=== PATIENT | female | born 1925 | race Caucasian/White ===

== ENCOUNTER 2016-12-02 02:03 | Inpatient (IN) | payer MEDICARE ==
[~2016-12-02] VITALS: Ht 165.1 cm; Wt 61.3 kg
[~2016-12-02 02:03] MED LIST: ATEN25TA PO; HYDR12.58 PO
[2016-12-02] MEDS: IV NORMAL SALINE 1000ML BAG 1,000 ML IV SCH ×6 (02:31→23:05)
[2016-12-02 02:35] LABS: BILIRUBIN,URINE NEGATIVE (NEG); GLUCOSE,URINE NEGATIVE (NEG); NITRITE,URINE NEGATIVE (NEG); PROTEIN,URINE 100 mg/dL (NEG-TRACE); UROBILINOGEN,URINE 0.2 mg/dL (0.2 mg/dL)
[2016-12-02 02:56] LABS: BACTERIA,URINE MODERATE /HPF (0-FEW); SQUAMOUS EPITHELIAL CELL,UR MOD /LPF; WBC,URINE TNTC /HPF (0-4)
[2016-12-02 03:07] LABS: BASO % 0 % (0-3); EOS % 0 % (0-3); HEMATOCRIT 31.4 % (36.0-47.0); HEMOGLOBIN 10.5 g/dL (12.0-15.5); LYMPH % 12 % (24-48); MEAN CORPUSCULAR HEMOGLOBIN 31 pg (25-35); MEAN CORPUSCULAR HGB CONC 33 g/dL (31-37); MEAN CORPUSCULAR VOLUME 91 fL (79-100); MONO % 10 % (0-9); NEUT % 77 % (31-73); PLATELET COUNT 157 x10^3/uL (140-400); RED BLOOD COUNT 3.44 x10^6/uL (3.50-5.40); RED CELL DISTRIBUTION WIDTH 12.8 % (11.5-14.5); WHITE BLOOD COUNT 8.8 x10^3/uL (4.0-11.0)
[2016-12-02 03:21] LABS: CALCIUM 8.5 mg/dL (8.5-10.1); CREATININE 2.8 mg/dL (0.6-1.0); GFR 15.9; POTASSIUM 4.5 mmol/L (3.5-5.1)
[2016-12-02 03:27] LABS: ALBUMIN 2.2 g/dL (3.4-5.0); ALBUMIN/GLOBULIN RATIO 0.6 (1.0-1.7); TOTAL BILIRUBIN 0.3 mg/dL (0.2-1.0); TOTAL PROTEIN 6.1 g/dL (6.4-8.2)
--- NOTE | 2016-12-02 03:40 | PHYS DOC ---
Past Medical History Past Medical History: Cancer, Hypertension Past Surgical History: Other Additional Past Surgical Histo: cataracts Alcohol Use: None Drug Use: None Adult General Chief Complaint Chief Complaint: DEHYDRATION HPI HPI Patient is a 89 year old female who presents with complaint of dehydration. Patient was brought to the emergency department by EMS after patient was found to have unstable vital signs at her halfway. The patient has history of Alzheimer's dementia, hypertension, and history of urinary tract infection. The patient has been at [facility] for continued care. The patient reportedly had been receiving torsemide 3 times a day which was increased from her normal dosing 3 times a week starting at the beginning of this month. Family states patient has been displaying worsening mental status over the past couple weeks. The patient currently is unable to provide any history but does respond to voice and states that she does not "feel well." Patient found to be hypotensive and tachycardic on EMS evaluation. Patient brought to the emergency department for further treatment. Review of Systems Review of Systems Unable to obtain from patient due to profound illness and dementia Current Medications Current Medications Current Medications Medications (Trade) Dose Ordered Sig/Kylah Start Time Stop Time Status Last Admin Dose Admin Acetaminophen (Tylenol) 650 mg PRN Q4HRS PRN 12/02/16 04:15 12/03/16 04:14 Ceftriaxone Sodium 50 ml @ 100 mls/hr 1X ONCE 12/02/16 03:30 12/02/16 03:59 DC 12/02/16 03:30 100 MLS/HR Ondansetron HCl (Zofran) 4 mg PRN Q8HRS PRN 12/02/16 04:15 12/03/16 04:14 Sodium Chloride 1,000 ml @ 150 mls/hr Q6H40M 12/02/16 04:15 12/03/16 04:14 Allergies Allergies Allergies Coded Allergies Type Severity Reaction Last Updated Verified codeine Allergy Intermediate 12/02/16 No Physical Exam Physical Exam Constitutional: Lethargic, afebrile, tachycardic, hypotensive, appears ill. [] HENT: Normocephalic, atraumatic, bilateral external ears normal, oropharynx dry , no oral exudates, nose normal. [] Eyes: PERRLA, EOMI, conjunctiva normal, no discharge. [] Neck: Normal range of motion, no tenderness, supple, no stridor. [] Cardiovascular: Tachycardia, regular rhythm, no murmur [] Lungs & Thorax: Bilateral breath sounds clear to auscultation [] Abdomen: Bowel sounds normal, soft, suprapubic and left lower quadrant tenderness palpation with guarding, no rebound tenderness, no masses, no pulsatile masses. [] Skin: Warm, dry, no erythema, no rash. [] Back: No tenderness, no CVA tenderness. [] Extremities: No tenderness, no cyanosis, no clubbing, ROM intact, no edema. [] Neurologic: Lethargic, opens eyes to voice, follows commands. [] Current Patient Data Vital Signs Vital Signs Date Time Temp Pulse Resp B/P (MAP) Pulse Ox O2 Delivery O2 Flow Rate FiO2 12/02/16 04:10 72 18 86/51 (63) 99 Nasal Cannula 2.0 12/02/16 02:09 97.8 97.8 Lab Values Laboratory Tests Test 12/02/16 02:25 12/02/16 02:52 Urine Collection Type U cath Urine Color Aide Urine Clarity Turbid Urine pH 8.0 Urine Specific [place] 1.015 Urine Protein 100 mg/dL (NEG-TRACE) Urine Glucose (UA) Negative mg/dL (NEG) Urine Ketones (Stick) Negative mg/dL (NEG) Urine Blood Moderate (NEG) Urine Nitrite Negative (NEG) Urine Bilirubin Negative (NEG) Urine Urobilinogen Dipstick 0.2 mg/dL (0.2 mg/dL) Urine Leukocyte Esterase Moderate (NEG) Urine RBC 6-10 /HPF (0-2) Urine WBC Tntc /HPF (0-4) Urine Squamous Epithelial Cells Mod /LPF Urine Bacteria Moderate /HPF (0-FEW) Urine Mucus Marked /LPF White Blood Count 8.8 x10^3/uL (4.0-11.0) Red Blood Count 3.44 x10^6/uL (3.50-5.40) L Hemoglobin 10.5 g/dL (12.0-15.5) L Hematocrit 31.4 % (36.0-47.0) L Mean Corpuscular Volume 91 fL (79-100) Mean Corpuscular Hemoglobin 31 pg (25-35) Mean Corpuscular Hemoglobin Concent 33 g/dL (31-37) Red Cell Distribution Width 12.8 % (11.5-14.5) Platelet Count 157 x10^3/uL (140-400) Neutrophils (%) (Auto) 77 % (31-73) H Lymphocytes (%) (Auto) 12 % (24-48) L Monocytes (%) (Auto) 10 % (0-9) H Eosinophils (%) (Auto) 0 % (0-3) Basophils (%) (Auto) 0 % (0-3) Neutrophils # (Auto) 6.8 x10^3uL (1.8-7.7) Lymphocytes # (Auto) 1.0 x10^3/uL (1.0-4.8) Monocytes # (Auto) 0.9 x10^3/uL (0.0-1.1) Eosinophils # (Auto) 0.0 x10^3/uL (0.0-0.7) Basophils # (Auto) 0.0 x10^3/uL (0.0-0.2) Sodium Level 126 mmol/L (136-145) L Potassium Level 4.5 mmol/L (3.5-5.1) Chloride Level 91 mmol/L (98-107) L Carbon Dioxide Level 26 mmol/L (21-32) Anion Gap 9 (6-14) Blood Urea Nitrogen 95 mg/dL (7-20) H Creatinine 2.8 mg/dL (0.6-1.0) H Estimated GFR (Cockcroft-Gault) 15.9 BUN/Creatinine Ratio 34 (6-20) H Glucose Level 156 mg/dL (70-99) H Calcium Level 8.5 mg/dL (8.5-10.1) Total Bilirubin 0.3 mg/dL (0.2-1.0) Aspartate Amino Transferase (AST) 23 U/L (15-37) Alanine Aminotransferase (ALT) 14 U/L (14-59) Alkaline Phosphatase 53 U/L (46-116) Total Protein 6.1 g/dL (6.4-8.2) L Albumin 2.2 g/dL (3.4-5.0) L Albumin/Globulin Ratio 0.6 (1.0-1.7) L Laboratory Tests 12/02/16 02:52 Laboratory Tests 12/02/16 02:52 EKG EKG Interpreted by me: Heart rate 116, sinus tachycardia, left axis deviation, left bundle branch block, no acute ST/T-wave abnormalities present [] Radiology/Procedures Radiology/Procedures 3 view acute abdominal series interpreted by me: No pulmonary infiltrates or effusions, nonobstructive bowel gas pattern, no free air under the diaphragm [] Course & Med Decision Making Course & Med Decision Making Pertinent Labs and Imaging studies reviewed. (See chart for details) Patient was started on IV fluids for treatment of severe dehydration. Upon infusion of IV fluids, patient's heart rate improved and patient's blood pressure increased to 100 systolic. Patient did not show any evidence of leukocytosis or fever. Patient has had long-standing urinary tract infection and is currently on Cipro therapy. The patient's hemodynamic instability appears to be due to overdiuresis from her torsemide as she was reported to be taking more than originally prescribed. I do not feel that the patient's hemodynamic instability is consistent with sepsis at this time. The patient was started on IV antibiotics as patient does have evidence of urinary tract infection and urine culture pending at time of admission. I discussed with the family that the patient would need to be admitted to the hospital. Patient stated that the patient normally gets admitted at [facility] and they had requested that the patient be transferred to [facility], however they were told by EMS due to unstable vital signs they needed to come to the closest facility. I offered the family a call through the transfer line to see if they would accept the patient as a transfer per family request. I also provided them the option of admitting the patient here [facility] for continued fluid therapy and IV antibiotics. After careful consideration, the family has agreed to admission to the hospital for further care. Patient amended to Dr. Mars. Critical care time excluding procedures: 50 minutes Dragon Disclaimer Dragon Disclaimer This electronic medical record was generated, in whole or in part, using a voice recognition dictation system. Departure Departure Impression: Primary Impression: Hemodynamic instability Additional Impressions: Acute renal failure Urinary tract infection Metabolic encephalopathy Severe protein-calorie malnutrition Dementia Disposition: ADMITTED INPATIENT Admitting Physician: Ny Mars Condition: GUARDED Referrals: LISE MUELLER MD (PCP) Problem Qualifiers Additional Impressions: Acute renal failure Acute renal failure type: unspecified Qualified Codes: N17.9 - Acute kidney failure, unspecified Urinary tract infection Urinary tract infection type: site unspecified Hematuria presence: without hematuria Qualified Codes: N39.0 - Urinary tract infection, site not specified Dementia Dementia type: unspecified type Dementia behavioral disturbance: without behavioral disturbance Qualified Codes: F03.90 - Unspecified dementia without behavioral disturbance PAM JEWELL MD December 02, 2016 03:40
[2016-12-02] MEDS ORDERED: ONDANSETRON PF 4 MG/2 ML VIAL. IV PRN (04:15)
--- NOTE | 2016-12-02 04:44 | ACF ---
Admission Forms Criteria TELEMETRY CARE Telemetry Admission Guidelines (Place 'X' for any and all applicable criteria): Admission to telemetry [A] may be indicated for ANY ONE of the following(1)(2)(3 )(4)(5): [ ]I. Cardiac disease, including ANY ONE of the following (9)(10)(11)(12)(13 ): [ ]a) Postacute MN [ ]b) Low-risk patients with ST-segment elevation MN who have undergone successful percutaneous coronary intervention [ ]c) Unstable angina [ ]d) Suspected MN (until it is ruled out) [ ]e) Post cardiac surgery (first 48 to 72 hours unless complications occur) [ ]f) Acute arrhythmias (including significant tachycardia or bradycardia) [B] [ ]g) Firing of an implantable cardioverter defibrillator [C] [ ]h) Suspected pacemaker or implantable cardioverter defibrillator malfunction (10) [ ]i) New administration or adjustment of an antiarrhythmic drug [D ] [ ]j) Child admitted for acute congestive heart failure [ ]j) Long QT syndrome [ ]k) Advanced heart block (eg, second-degree Mobitz type II, third- degree heart block) [ ]l) Acute myocarditis or pericarditis [ ]m) Short-term (ambulatory or inpatient) monitoring after a cardiac procedure as indicated by ANY ONE of the following [E]: [ ]i) Electrophysiologic studies [ ]ii) Percutaneous coronary intervention with stent placement [ ]iii) Pacemaker placement with cardiac conduction defect [ ]iv) Implantable cardiac defibrillator placement [ ]II. Drug overdose or poisoning with substance that causes arrhythmias or QT prolongation (eg, phenothiazines, sympathomimetic agents, cyclic antidepressants, digitalis, antiarrhythmic drugs)(15) [ ]III. Short-term (ambulatory or inpatient) monitoring after therapeutic or diagnostic procedure requiring conscious sedation or anesthesia (eg, endoscopy, elective cardioversion) [ ]IV. Acute cerebrovascular even[F](18) [ ]V. Massive blood transfusion (eg, at least 10 units of packed red blood cells in 24 hours) [ ]. Variceal bleeding after endoscopy, sclerotherapy, or IV vasopressin [ ]VII. Uncorrected electrolyte abnormalities associated with an increased risk of dangerous arrhythmia [G]; examples include [ ]a) Hyperkalemia with attributable ECG changes [ ]b) Potassium greater than 6.5 mmol/L (mEq/L) in a patient without history of chronic renal disease [ ]c) Prolonged QT attributed to hypokalemia, hypomagnesemia, or hypocalcemia [ ]VIII.Unexplained syncope or other neurologic event suspected of being due to arrhythmia due to a finding that increases risk; examples include(19)(20)(21): [ ]a) High-risk ECG findings (eg, bifascicular block, bradycardia, abnormal QT interval, ventricular pre- excitation) [ ]b) History of previous syncope due to arrhythmia [ ]c) Abnormal ventricular function (eg, reduced ejection fraction ) [ ]d) Exertional or supine syncope [ ]e) Concerning syncope characteristics (eg, sudden loss of consciousness without prodrome) [ ]f) Family history of sudden [ ]g) Use of arrhythmogenic medication [ ]h) Suspected cardiac ischemia [ ]i) Known channelopathy (eg, long QT syndrome, Brugada syndrome, or catecholaminergic paroxysmal ventricular tachycardia) [ ]j) Known structural heart disease (eg, hypertrophic cardiomyopathy , severe valvular disease) [ ]k) Palpitations preceding syncope The original [employer] content created by [employer] has been revised. The portions of the content which have been revised are identified through the use of italic text or in bold, and [employer] has neither reviewed nor approved the modified material. All other unmodified content is copyright [employer]. Please see references footnoted in the original [employer] edition 2016 NEREIDA ALSTON December 02, 2016 04:44
[2016-12-02 05:18] VITALS: BP 103/60
[2016-12-02 07:00] VITALS: BP 96/55
--- NOTE | 2016-12-02 07:15 | EKG ---
[facility] [address] [place] [address] Test Date: 2016-12-02 Test Time: 02:17:32 Pat Name: KELSEA OGDEN Department: Room: [facility] Gender: F Vice President Research: : 1925 Requested By: PAM JEWELL Order Number: [id number] Reading MD: Vladislav Machado Measurements Intervals [place] Rate: 116 P: TX: QRS: -66 QRSD: 124 T: 80 QT: 336 QTc: 473 Interpretive Statements SUSPECT SINUS RHYTHM 1ST DEGREE AVB PACS LBBB POSSIBLE PRIOR LATERAL/INFERIOR INFARCT Electronically Signed On 12-02-2016 10:48:11 CDT by Vladislav Machado
--- NOTE | 2016-12-02 07:40 | RAD ---
Indication abdominal pain. A single view of the chest as well as flat and upright films of the abdomen were obtained. No prior imaging is available. There is mild cardiomegaly. Somewhat tortuous thoracic aorta is noted. There is no congestive heart failure or focal infiltrate seen. There is no free air. The abdominal gas pattern is normal. No organomegaly or abnormal calculi are seen. Scoliosis, extensive degenerative changes in the visualized spine and vascular calcification are noted. IMPRESSION: No acute finding seen in the chest or abdomen on plain films
--- NOTE | 2016-12-02 08:40 | ACF ---
Admission Forms Criteria HEMODYNAMIC INSTABILITY Clinical Indications for Inpatient Care (Place 'X' for any and all applicable criteria): Ongoing inpatient care may be indicated for hemodynamic instability as indicated by ANY ONE of the following (1)(2)(3)(4)(10): [ ]I) Marked hemodynamic change from baseline (eg, SBP 20 mm Hg below patient's usual pressure) [X]II) New SBP less than 90 mm Hg or mean arterial pressure less than 70 mm Hg [B](15) [ ]IIII) Symptomatic heart rate greater than 100 or less than 60 beats per minute unresponsive to treatment (eg, analgesia, fluids) [ ]IV) Inadequate perfusion as indicated by ANY ONE of the following: [ ]a) Lactic acidosis, with lactic acid greater than 18 mg/dL (2 mmol/ L) or base excess less than -5 mEq/L [ ]b) New abnormal capillary refill (longer than 3 seconds) [ ]c) New altered mental status [ ]d) Reduced urine output [ ]V) Orthostatic vital sign changes [B] that are symptomatic and unresponsive to treatment (eg, fluids) [ ]) IV inotropic or vasopressor medication required(26) Extended stay beyond goal length of stay for primary condition may be needed until ALL of the following are present(1)(2)(3): [ ]a) Heart rate > 60 and < 100 beats per minute or patient is clinically stable at current rate (eg, baseline) [ ]b) SBP >100 mm Hg and <160 mm Hg or patient is clinically stable at current pressure (eg, baseline) [ ]c) DBP greater than 50 mm Hg and less than 100 mm Hg or patient is clinically stable at current pressure (eg, baseline) [ ]d) Urine output greater than 0.5 mL/kg per hour [ ]e) Room air oxygen saturation 90% or greater or at baseline [ ]f) Orthostatic vital sign changes absent, asymptomatic, at baseline, or manageable at lower level of care [ ]g) Medical comorbidities manageable at lower level of care The original [employer] content created by [employer] has been revised. The portions of the content which have been revised are identified through the use of italic text or in bold, and [facility] [employer] has neither reviewed nor approved the modified material. All other unmodified content is copyright [employer]. Please see references footnoted in the original [facility] edition 2016 Admission Criteria Met?: Yes NEREIDA ALSTON December 02, 2016 08:40
[2016-12-02] MEDS ORDERED: GABA-585 PO (08:46)
[2016-12-02] MEDS ORDERED: ACID1TAB11 PO (08:46)
[2016-12-02] MEDS ORDERED: CAPS42.57 TP (08:46)
[2016-12-02] MEDS ORDERED: CIPR250T30 PO (08:46)
[2016-12-02] MEDS ORDERED: LOPE2TAB27 PO (08:46)
[2016-12-02] MEDS ORDERED: TRAM50TA PO (08:46)
[2016-12-02] MEDS ORDERED: ACET500T68 PO (08:46)
[2016-12-02] MEDS ORDERED: PSYL1PAC7 PO (08:46)
[2016-12-02] MEDS ORDERED: TORS20TA2 PO (08:46)
[2016-12-02] MEDS ORDERED: PRAM0.255 PO (08:46)
[2016-12-02] MEDS ORDERED: ENOXAPARIN 30 MG/0.3 ML SYRINGE. SQ SCH (09:00)
[2016-12-02] MEDS: ATENOLOL 25 MG TABLET. PO SCH (09:00)
--- NOTE | 2016-12-02 09:06 | PDOC1 ---
History and Physical Date of Admission Date of Admission DATE: 12/02/16 TIME: 08:59 Identification/Chief Complaint Chief Complaint lethargy, confusion Problems: Source Source: Chart review, Patient History of Present Illness History of Present Illness Lupe New is a 89 year old female admit from confusion, found to be acutely in dehydration. Meds changed from Torsemide 3x week to 3x a day,. error was noted, but family reports that facility "was unable to change to order due to it being a holiday weekend" BP low, brought to ER Hx of mild Alzheimer's dementia, hypertension, and history of chronic urinary tract infection. Chronic diarrhea from diverticulosis, no change.. Family states patient has been displaying worsening mental status over the past couple weeks. Patient found to be hypotensive and tachycardic on EMS evaluation. lethargic this AM, a little better per family Past Medical History Cardiovascular: HTN Pulmonary: No pertinent hx GI: No pertinent hx Heme/Onc: No pertinent hx Rheumatologic: No pertinent hx Infectious disease: No pertinent hx ENT: No pertinent hx Renal/: Chronic renal insuff Family History Family History: No Significant Social History Smoke: No ALCOHOL: none Drugs: None Current Problem List Problem List Problems Medical Problems: (1) Acute renal failure Status: Acute (2) Dementia Status: Acute (3) Hemodynamic instability Status: Acute (4) Metabolic encephalopathy Status: Acute (5) Severe protein-calorie malnutrition Status: Acute (6) Urinary tract infection Status: Acute Problems: Current Medications Current Medications Current Medications Sodium Chloride 1,000 ml @ 1,000 mls/hr Q1H IV Last administered on 12/02/16 03:57; Start 12/02/16 at 03:00; Stop 12/02/16 at 04:59; Status DC Ceftriaxone Sodium 1 gm/ Sodium Chloride 50 ml @ 100 mls/hr Q24H IV ; Start at 04:00 Ceftriaxone Sodium 50 ml @ 100 mls/hr 1X ONCE IV Last administered on 03:30; Start 12/02/16 at 03:30; Stop 12/02/16 at 03:59; Status DC Ondansetron HCl (Zofran) 4 mg PRN Q8HRS PRN IV NAUSEA/VOMITING; Start 12/02/16 at 04:15; Stop 12/03/16 at 04:14 Sodium Chloride 1,000 ml @ 150 mls/hr Q6H40M IV Last administered on t 05:55; Start 12/02/16 at 04:15; Stop 12/03/16 at 04:14 Acetaminophen (Tylenol) 650 mg PRN Q4HRS PRN PO FEVER; Start 12/02/16 at 04:15 ; Stop 12/03/16 at 04:14 Atenolol (Tenormin) 25 mg DAILY PO ; Start 12/02/16 at 09:00 Enoxaparin Sodium (Lovenox Per Pharmacy Prophylaxis Dosing) 1 each PRN DAILY PRN MC SEE COMMENTS; Start 12/02/16 at 08:45 Enoxaparin Sodium (Lovenox 30mg Syringe) 30 mg Q24H SQ ; Start 12/02/16 at 09:00 Active Scripts Active Reported Neurontin (Gabapentin) 100 Mg Capsule 100 Mg PO TID Bacid Caplet (Acidoph/L.bulg/Bif.b/S.thermop) 1 Each Tablet 1 Each PO BID Cipro (Ciprofloxacin Hcl) 250 Mg Tablet 1 Tab PO BID Acetaminophen 500 Mg Tablet 2 Tab PO Q4HRS PRN Tramadol Hcl 50 Mg Tablet 25 Mg PO PRN Q6HRS Loperamide (Loperamide Hcl) 2 Mg Tablet 2 Mg PO PRN 2 caps initially then 1 cap each loose stool up to 8 caps in 24 hrs Capzasin Quick Relief Gel (Capsaicin/Menthol) 42.5 Gm Gel.w.appl 1 Pam TP TID PRN Torsemide 20 Mg Tablet 10 Mg PO Q3DAYS Mirapex (Pramipexole Di-Hcl) 0.25 Mg Tablet 1 Tab PO DAILY Metamucil Packet (Psyllium Seed (With Sugar)) 1 Each Packet 1 Each PO DAILY Hydrochlorothiazide Tablet (Hydrochlorothiazide) 12.5 Mg Tablet 12.5 Mg PO DAILY Atenolol 25 Mg Tablet 25 Mg PO DAILY Allergies Allergies: Coded Allergies: codeine (Unverified Allergy, Intermediate, 12/02/16) ROS Review of System pt lethargic and slow to respond, unable to complete, hx per daughter-in law. some worsening lethargy over time Physical Exam General: Cooperative, No acute distress, Other (not oriented) HEENT: EOMI, Mucous membr. moist/pink, Other (dry) Lungs: Normal air movement Heart: no gallops, no murmurs Extremities: No clubbing, No edema Skin: No significant lesion Neuro: Normal tone Psych/Mental Status: Mood NL Vitals Vitals Vital Signs Date Time Temp Pulse Resp B/P (MAP) Pulse Ox O2 Delivery O2 Flow Rate FiO2 12/02/16 07:00 98.5 96 18 96/55 (69) 98 Room Air 2.0 98.5 Labs Labs Laboratory Tests Test 12/02/16 02:25 12/02/16 02:52 Urine Collection Type U cath Urine Color Aide Urine Clarity Turbid Urine pH 8.0 Urine Specific [place] 1.015 Urine Protein 100 mg/dL (NEG-TRACE) Urine Glucose (UA) Negative mg/dL (NEG) Urine Ketones (Stick) Negative mg/dL (NEG) Urine Blood Moderate (NEG) Urine Nitrite Negative (NEG) Urine Bilirubin Negative (NEG) Urine Urobilinogen Dipstick 0.2 mg/dL (0.2 mg/dL) Urine Leukocyte Esterase Moderate (NEG) Urine RBC 6-10 /HPF (0-2) Urine WBC Tntc /HPF (0-4) Urine Squamous Epithelial Cells Mod /LPF Urine Bacteria Moderate /HPF (0-FEW) Urine Mucus Marked /LPF White Blood Count 8.8 x10^3/uL (4.0-11.0) Red Blood Count 3.44 x10^6/uL (3.50-5.40) Hemoglobin 10.5 g/dL (12.0-15.5) Hematocrit 31.4 % (36.0-47.0) Mean Corpuscular Volume 91 fL (79-100) Mean Corpuscular Hemoglobin 31 pg (25-35) Mean Corpuscular Hemoglobin Concent 33 g/dL (31-37) Red Cell Distribution Width 12.8 % (11.5-14.5) Platelet Count 157 x10^3/uL (140-400) Neutrophils (%) (Auto) 77 % (31-73) Lymphocytes (%) (Auto) 12 % (24-48) Monocytes (%) (Auto) 10 % (0-9) Eosinophils (%) (Auto) 0 % (0-3) Basophils (%) (Auto) 0 % (0-3) Neutrophils # (Auto) 6.8 x10^3uL (1.8-7.7) Lymphocytes # (Auto) 1.0 x10^3/uL (1.0-4.8) Monocytes # (Auto) 0.9 x10^3/uL (0.0-1.1) Eosinophils # (Auto) 0.0 x10^3/uL (0.0-0.7) Basophils # (Auto) 0.0 x10^3/uL (0.0-0.2) Sodium Level 126 mmol/L (136-145) Potassium Level 4.5 mmol/L (3.5-5.1) Chloride Level 91 mmol/L (98-107) Carbon Dioxide Level 26 mmol/L (21-32) Anion Gap 9 (6-14) Blood Urea Nitrogen 95 mg/dL (7-20) Creatinine 2.8 mg/dL (0.6-1.0) Estimated GFR (Cockcroft-Gault) 15.9 BUN/Creatinine Ratio 34 (6-20) Glucose Level 156 mg/dL (70-99) Calcium Level 8.5 mg/dL (8.5-10.1) Total Bilirubin 0.3 mg/dL (0.2-1.0) Aspartate Amino Transf (AST/SGOT) 23 U/L (15-37) Alanine Aminotransferase (ALT/SGPT) 14 U/L (14-59) Alkaline Phosphatase 53 U/L (46-116) Total Protein 6.1 g/dL (6.4-8.2) Albumin 2.2 g/dL (3.4-5.0) Albumin/Globulin Ratio 0.6 (1.0-1.7) Laboratory Tests Test 12/02/16 02:25 12/02/16 02:52 Urine Collection Type U cath Urine Color Aide Urine Clarity Turbid Urine pH 8.0 Urine Specific [place] 1.015 Urine Protein 100 mg/dL (NEG-TRACE) Urine Glucose (UA) Negative mg/dL (NEG) Urine Ketones (Stick) Negative mg/dL (NEG) Urine Blood Moderate (NEG) Urine Nitrite Negative (NEG) Urine Bilirubin Negative (NEG) Urine Urobilinogen Dipstick 0.2 mg/dL (0.2 mg/dL) Urine Leukocyte Esterase Moderate (NEG) Urine RBC 6-10 /HPF (0-2) Urine WBC Tntc /HPF (0-4) Urine Squamous Epithelial Cells Mod /LPF Urine Bacteria Moderate /HPF (0-FEW) Urine Mucus Marked /LPF White Blood Count 8.8 x10^3/uL (4.0-11.0) Red Blood Count 3.44 x10^6/uL (3.50-5.40) Hemoglobin 10.5 g/dL (12.0-15.5) Hematocrit 31.4 % (36.0-47.0) Mean Corpuscular Volume 91 fL (79-100) Mean Corpuscular Hemoglobin 31 pg (25-35) Mean Corpuscular Hemoglobin Concent 33 g/dL (31-37) Red Cell Distribution Width 12.8 % (11.5-14.5) Platelet Count 157 x10^3/uL (140-400) Neutrophils (%) (Auto) 77 % (31-73) Lymphocytes (%) (Auto) 12 % (24-48) Monocytes (%) (Auto) 10 % (0-9) Eosinophils (%) (Auto) 0 % (0-3) Basophils (%) (Auto) 0 % (0-3) Neutrophils # (Auto) 6.8 x10^3uL (1.8-7.7) Lymphocytes # (Auto) 1.0 x10^3/uL (1.0-4.8) Monocytes # (Auto) 0.9 x10^3/uL (0.0-1.1) Eosinophils # (Auto) 0.0 x10^3/uL (0.0-0.7) Basophils # (Auto) 0.0 x10^3/uL (0.0-0.2) Sodium Level 126 mmol/L (136-145) Potassium Level 4.5 mmol/L (3.5-5.1) Chloride Level 91 mmol/L (98-107) Carbon Dioxide Level 26 mmol/L (21-32) Anion Gap 9 (6-14) Blood Urea Nitrogen 95 mg/dL (7-20) Creatinine 2.8 mg/dL (0.6-1.0) Estimated GFR (Cockcroft-Gault) 15.9 BUN/Creatinine Ratio 34 (6-20) Glucose Level 156 mg/dL (70-99) Calcium Level 8.5 mg/dL (8.5-10.1) Total Bilirubin 0.3 mg/dL (0.2-1.0) Aspartate Amino Transf (AST/SGOT) 23 U/L (15-37) Alanine Aminotransferase (ALT/SGPT) 14 U/L (14-59) Alkaline Phosphatase 53 U/L (46-116) Total Protein 6.1 g/dL (6.4-8.2) Albumin 2.2 g/dL (3.4-5.0) Albumin/Globulin Ratio 0.6 (1.0-1.7) VTE Prophylaxis Ordered VTE Prophylaxis Devices: Yes VTE Pharmacological Prophylaxi: No Assessment/Plan Assessment/Plan UTI, acute renal failure dehydration, over-diuresis acute metabolic encephalopathy, UTI and uremia severe malnutrition, alb 2.2 hyponatremia, hypovolemic weakness and debility after a fall, has been in skilled about 28 days admit, renal consult, IV fluid, PT and OT AMBER OCASIO MD December 02, 2016 09:06
[2016-12-02] MEDS: SODIUM BICARBONATE 650 MG TABLET. PO SCH ×2 (10:04→20:39)
[2016-12-02] MEDS: ACETAMINOPHEN 325 MG TABLET. PO PRN ×3 (10:05→21:59)
[2016-12-02 11:00] VITALS: BP 87/57
[2016-12-02 15:00] VITALS: BP 103/58
[2016-12-02 19:00] VITALS: BP 86/33
[2016-12-02] MEDS: metroNIDAZOLE 500 MG TABLET PO SCH (21:59)
[2016-12-02 23:00] VITALS: BP_SYST 129; BP_SYST 84; BP_DIAS 53; BP_DIAS 67
[2016-12-03 03:02] VITALS: BP 96/59
[2016-12-03] MEDS: metroNIDAZOLE 500 MG TABLET PO SCH (04:51)
[2016-12-03 04:52] LABS: BASO % 0 % (0-3); EOS % 2 % (0-3); HEMATOCRIT 27.6 % (36.0-47.0); HEMOGLOBIN 9.1 g/dL (12.0-15.5); LYMPH # 0.8 x10^3/uL (1.0-4.8); LYMPH % 16 % (24-48); MEAN CORPUSCULAR HEMOGLOBIN 30 pg (25-35); MEAN CORPUSCULAR HGB CONC 33 g/dL (31-37); MEAN CORPUSCULAR VOLUME 92 fL (79-100); MONO % 11 % (0-9); NEUT % 71 % (31-73); PLATELET COUNT 134 x10^3/uL (140-400); RED CELL DISTRIBUTION WIDTH 12.8 % (11.5-14.5); WHITE BLOOD COUNT 5.2 x10^3/uL (4.0-11.0)
[2016-12-03 05:06] LABS: CALCIUM 7.7 mg/dL (8.5-10.1); CREATININE 1.8 mg/dL (0.6-1.0); GFR 26.5; MAGNESIUM 2.1 mg/dL (1.8-2.4); POTASSIUM 3.9 mmol/L (3.5-5.1)
[2016-12-03 07:00] VITALS: BP 111/56
[2016-12-03] MEDS: IV NORMAL SALINE 1000ML BAG 1,000 ML IV SCH ×3 (08:09→21:20)
[2016-12-03] MEDS: SODIUM BICARBONATE 650 MG TABLET. PO SCH ×2 (08:09→21:44)
[2016-12-03] MEDS: ATENOLOL 25 MG TABLET. PO SCH (08:10)
[2016-12-03] MEDS: HEPARIN PF for SUB-Q USE 5,000 UNIT/0.5 ML VIAL. SQ SCH ×2 (08:17→21:54)
--- NOTE | 2016-12-03 10:10 | PDOC ---
Infectious Disease Note ROS ROS GEN: Denies fevers, chills, sweats HEENT: Denies blurred vision, sore throat CV: Denies chest pain RESP: Denies shortness of air, cough GI: Denies n/v/d NEURO: Denies confusion, dizziness MSK: Denies weakness, joint pain/swelling Vital Sign Vital Signs Vital Signs Date Time Temp Pulse Resp B/P (MAP) Pulse Ox O2 Delivery O2 Flow Rate FiO2 12/03/16 08:00 Room Air 12/03/16 07:00 97.7 80 20 111/56 (74) 98 97.7 12/02/16 15:00 2.0 Physical Exam PHYSICAL EXAM GENERAL: NAD, Alert HEENT: PERRL, OC/OP NECK: Supple, no JVD, no LN LUNGS: Clear HEART: S1S2, no gallop, no murmur ABD: Soft, NT, no organomegaly, no rebound EXT: No edema, no cyanosis 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, 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 3, no focal neurologic deficit SKIN: No rash IV: ok Labs Lab Laboratory Tests Test 12/03/16 03:10 White Blood Count 5.2 x10^3/uL (4.0-11.0) Red Blood Count 3.00 x10^6/uL (3.50-5.40) Hemoglobin 9.1 g/dL (12.0-15.5) Hematocrit 27.6 % (36.0-47.0) Mean Corpuscular Volume 92 fL (79-100) Mean Corpuscular Hemoglobin 30 pg (25-35) Mean Corpuscular Hemoglobin Concent 33 g/dL (31-37) Red Cell Distribution Width 12.8 % (11.5-14.5) Platelet Count 134 x10^3/uL (140-400) Neutrophils (%) (Auto) 71 % (31-73) Lymphocytes (%) (Auto) 16 % (24-48) Monocytes (%) (Auto) 11 % (0-9) Eosinophils (%) (Auto) 2 % (0-3) Basophils (%) (Auto) 0 % (0-3) Neutrophils # (Auto) 3.7 x10^3uL (1.8-7.7) Lymphocytes # (Auto) 0.8 x10^3/uL (1.0-4.8) Monocytes # (Auto) 0.6 x10^3/uL (0.0-1.1) Eosinophils # (Auto) 0.1 x10^3/uL (0.0-0.7) Basophils # (Auto) 0.0 x10^3/uL (0.0-0.2) Sodium Level 133 mmol/L (136-145) Potassium Level 3.9 mmol/L (3.5-5.1) Chloride Level 100 mmol/L (98-107) Carbon Dioxide Level 22 mmol/L (21-32) Anion Gap 11 (6-14) Blood Urea Nitrogen 75 mg/dL (7-20) Creatinine 1.8 mg/dL (0.6-1.0) Estimated GFR (Cockcroft-Gault) 26.5 Glucose Level 84 mg/dL (70-99) Calcium Level 7.7 mg/dL (8.5-10.1) Magnesium Level 2.1 mg/dL (1.8-2.4) Objective Assessment 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 Was on Flagyl at [facility] starting 11/10 for c-diff per records ? UTI - UA looks ? contaminated- recent Ecoli at . 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
--- NOTE | 2016-12-03 10:53 | PDOC ---
PROGRESS NOTES Chief Complaint Chief Complaint UTI, acute renal failure dehydration, vasomotor nephropathy acute metabolic encephalopathy, UTI and uremia severe malnutrition, alb 2.2 hyponatremia, hypovolemic weakness and debility after a fall, c. diff colitis, History of Present Illness History of Present Illness cont IV fluid, some improvement still very weak, diarrhea consult ID, change to PO vanco discussed with family Speech therapy eval today Vitals Vitals Vital Signs Date Time Temp Pulse Resp B/P (MAP) Pulse Ox O2 Delivery O2 Flow Rate FiO2 12/03/16 08:00 Room Air 12/03/16 07:00 97.7 80 20 111/56 (74) 98 97.7 12/02/16 15:00 2.0 Physical Exam General: Cooperative, No acute distress, Other (not oriented) Heart: Regular rate Lungs: Clear Abdomen: Normal bowel sounds, Soft Extremities: No clubbing, No edema Skin: No significant lesion Labs LABS Laboratory Tests Test 12/03/16 03:10 White Blood Count 5.2 x10^3/uL (4.0-11.0) Red Blood Count 3.00 x10^6/uL (3.50-5.40) Hemoglobin 9.1 g/dL (12.0-15.5) Hematocrit 27.6 % (36.0-47.0) Mean Corpuscular Volume 92 fL (79-100) Mean Corpuscular Hemoglobin 30 pg (25-35) Mean Corpuscular Hemoglobin Concent 33 g/dL (31-37) Red Cell Distribution Width 12.8 % (11.5-14.5) Platelet Count 134 x10^3/uL (140-400) Neutrophils (%) (Auto) 71 % (31-73) Lymphocytes (%) (Auto) 16 % (24-48) Monocytes (%) (Auto) 11 % (0-9) Eosinophils (%) (Auto) 2 % (0-3) Basophils (%) (Auto) 0 % (0-3) Neutrophils # (Auto) 3.7 x10^3uL (1.8-7.7) Lymphocytes # (Auto) 0.8 x10^3/uL (1.0-4.8) Monocytes # (Auto) 0.6 x10^3/uL (0.0-1.1) Eosinophils # (Auto) 0.1 x10^3/uL (0.0-0.7) Basophils # (Auto) 0.0 x10^3/uL (0.0-0.2) Sodium Level 133 mmol/L (136-145) Potassium Level 3.9 mmol/L (3.5-5.1) Chloride Level 100 mmol/L (98-107) Carbon Dioxide Level 22 mmol/L (21-32) Anion Gap 11 (6-14) Blood Urea Nitrogen 75 mg/dL (7-20) Creatinine 1.8 mg/dL (0.6-1.0) Estimated GFR (Cockcroft-Gault) 26.5 Glucose Level 84 mg/dL (70-99) Calcium Level 7.7 mg/dL (8.5-10.1) Magnesium Level 2.1 mg/dL (1.8-2.4) Review of Systems Review of Systems lethargy, weakness taking some PO, able to awaken and follow commands for short periods Assessment and Plan Assessmemt and Plan Problems Medical Problems: (1) Acute renal failure Status: Acute (2) Dementia Status: Acute (3) Hemodynamic instability Status: Acute (4) Metabolic encephalopathy Status: Acute (5) Severe protein-calorie malnutrition Status: Acute (6) Urinary tract infection Status: Acute Problems: Comment Review of Relevant I have reviewed the following items manjinder (where applicable) has been applied. Labs Laboratory Tests Test 12/02/16 02:25 12/02/16 02:52 12/02/16 07:30 12/03/16 03:10 Urine Collection Type U cath Urine Color Aide Urine Clarity Turbid Urine pH 8.0 Urine Specific [place] 1.015 Urine Protein 100 mg/dL (NEG-TRACE) Urine Glucose (UA) Negative mg/dL (NEG) Urine Ketones (Stick) Negative mg/dL (NEG) Urine Blood Moderate (NEG) Urine Nitrite Negative (NEG) Urine Bilirubin Negative (NEG) Urine Urobilinogen Dipstick 0.2 mg/dL (0.2 mg/dL) Urine Leukocyte Esterase Moderate (NEG) Urine RBC 6-10 /HPF (0-2) Urine WBC Tntc /HPF (0-4) Urine Squamous Epithelial Cells Mod /LPF Urine Bacteria Moderate /HPF (0-FEW) Urine Mucus Marked /LPF White Blood Count 8.8 x10^3/uL (4.0-11.0) 5.2 x10^3/uL (4.0-11.0) Red Blood Count 3.44 x10^6/uL (3.50-5.40) 3.00 x10^6/uL (3.50-5.40) Hemoglobin 10.5 g/dL (12.0-15.5) 9.1 g/dL (12.0-15.5) Hematocrit 31.4 % (36.0-47.0) 27.6 % (36.0-47.0) Mean Corpuscular Volume 91 fL (79-100) 92 fL (79-100) Mean Corpuscular Hemoglobin 31 pg (25-35) 30 pg (25-35) Mean Corpuscular Hemoglobin Concent 33 g/dL (31-37) 33 g/dL (31-37) Red Cell Distribution Width 12.8 % (11.5-14.5) 12.8 % (11.5-14.5) Platelet Count 157 x10^3/uL (140-400) 134 x10^3/uL (140-400) Neutrophils (%) (Auto) 77 % (31-73) 71 % (31-73) Lymphocytes (%) (Auto) 12 % (24-48) 16 % (24-48) Monocytes (%) (Auto) 10 % (0-9) 11 % (0-9) Eosinophils (%) (Auto) 0 % (0-3) 2 % (0-3) Basophils (%) (Auto) 0 % (0-3) 0 % (0-3) Neutrophils # (Auto) 6.8 x10^3uL (1.8-7.7) 3.7 x10^3uL (1.8-7.7) Lymphocytes # (Auto) 1.0 x10^3/uL (1.0-4.8) 0.8 x10^3/uL (1.0-4.8) Monocytes # (Auto) 0.9 x10^3/uL (0.0-1.1) 0.6 x10^3/uL (0.0-1.1) Eosinophils # (Auto) 0.0 x10^3/uL (0.0-0.7) 0.1 x10^3/uL (0.0-0.7) Basophils # (Auto) 0.0 x10^3/uL (0.0-0.2) 0.0 x10^3/uL (0.0-0.2) Sodium Level 126 mmol/L (136-145) 133 mmol/L (136-145) Potassium Level 4.5 mmol/L (3.5-5.1) 3.9 mmol/L (3.5-5.1) Chloride Level 91 mmol/L (98-107) 100 mmol/L (98-107) Carbon Dioxide Level 26 mmol/L (21-32) 22 mmol/L (21-32) Anion Gap 9 (6-14) 11 (6-14) Blood Urea Nitrogen 95 mg/dL (7-20) 75 mg/dL (7-20) Creatinine 2.8 mg/dL (0.6-1.0) 1.8 mg/dL (0.6-1.0) Estimated GFR (Cockcroft-Gault) 15.9 26.5 BUN/Creatinine Ratio 34 (6-20) Glucose Level 156 mg/dL (70-99) 84 mg/dL (70-99) Calcium Level 8.5 mg/dL (8.5-10.1) 7.7 mg/dL (8.5-10.1) Total Bilirubin 0.3 mg/dL (0.2-1.0) Aspartate Amino Transf (AST/SGOT) 23 U/L (15-37) Alanine Aminotransferase (ALT/SGPT) 14 U/L (14-59) Alkaline Phosphatase 53 U/L (46-116) Total Protein 6.1 g/dL (6.4-8.2) Albumin 2.2 g/dL (3.4-5.0) Albumin/Globulin Ratio 0.6 (1.0-1.7) Nasal Screen MRSA (PCR) Negative (Negative) Clostridium difficile Toxin (PCR) Positive (Negative) Magnesium Level 2.1 mg/dL (1.8-2.4) Laboratory Tests Test 12/03/16 03:10 White Blood Count 5.2 x10^3/uL (4.0-11.0) Red Blood Count 3.00 x10^6/uL (3.50-5.40) Hemoglobin 9.1 g/dL (12.0-15.5) Hematocrit 27.6 % (36.0-47.0) Mean Corpuscular Volume 92 fL (79-100) Mean Corpuscular Hemoglobin 30 pg (25-35) Mean Corpuscular Hemoglobin Concent 33 g/dL (31-37) Red Cell Distribution Width 12.8 % (11.5-14.5) Platelet Count 134 x10^3/uL (140-400) Neutrophils (%) (Auto) 71 % (31-73) Lymphocytes (%) (Auto) 16 % (24-48) Monocytes (%) (Auto) 11 % (0-9) Eosinophils (%) (Auto) 2 % (0-3) Basophils (%) (Auto) 0 % (0-3) Neutrophils # (Auto) 3.7 x10^3uL (1.8-7.7) Lymphocytes # (Auto) 0.8 x10^3/uL (1.0-4.8) Monocytes # (Auto) 0.6 x10^3/uL (0.0-1.1) Eosinophils # (Auto) 0.1 x10^3/uL (0.0-0.7) Basophils # (Auto) 0.0 x10^3/uL (0.0-0.2) Sodium Level 133 mmol/L (136-145) Potassium Level 3.9 mmol/L (3.5-5.1) Chloride Level 100 mmol/L (98-107) Carbon Dioxide Level 22 mmol/L (21-32) Anion Gap 11 (6-14) Blood Urea Nitrogen 75 mg/dL (7-20) Creatinine 1.8 mg/dL (0.6-1.0) Estimated GFR (Cockcroft-Gault) 26.5 Glucose Level 84 mg/dL (70-99) Calcium Level 7.7 mg/dL (8.5-10.1) Magnesium Level 2.1 mg/dL (1.8-2.4) Medications Current Medications Sodium Chloride 1,000 ml @ 1,000 mls/hr Q1H IV Last administered on 12/02/16t 03:57; Start 12/02/16 at 03:00; Stop 12/02/16 at 04:59; Status DC Ceftriaxone Sodium 1 gm/ Sodium Chloride 50 ml @ 100 mls/hr Q24H IV Last administered on 12/03/16 04:51; Start 12/03/16 at 04:00 Ceftriaxone Sodium 50 ml @ 100 mls/hr 1X ONCE IV Last administered on 03:30; Start 12/02/16 at 03:30; Stop 12/02/16 at 03:59; Status DC Ondansetron HCl (Zofran) 4 mg PRN Q8HRS PRN IV NAUSEA/VOMITING; Start 12/02/16 at 04:15; Stop 12/03/16 at 04:14; Status DC Sodium Chloride 1,000 ml @ 150 mls/hr Q6H40M IV Last administered on 23:05; Start 12/02/16 at 04:15; Stop 12/03/16 at 04:14; Status DC Acetaminophen (Tylenol) 650 mg PRN Q4HRS PRN PO FEVER Last administered on 12/02 21:59; Start 12/02/16 at 04:15; Stop 12/03/16 at 04:14; Status DC Atenolol (Tenormin) 25 mg DAILY PO ; Start 12/02/16 at 09:00 Enoxaparin Sodium (Lovenox Per Pharmacy Prophylaxis Dosing) 1 each PRN DAILY PRN [facility] SEE COMMENTS; Start 12/02/16 at 08:45; Stop 12/02/16 at 15:54; Status DC Enoxaparin Sodium (Lovenox 30mg Syringe) 30 mg Q24H SQ Last administered on 09:56; Start 12/02/16 at 09:00; Stop 12/02/16 at 16:02; Status DC Sodium Bicarbonate (Sodium Bicarbonate) 650 mg BID PO Last administered on 12/03 08:09; Start 12/02/16 at 09:30 Heparin Sodium (Porcine) (Heparin Sq) 5,000 unit Q12HR SQ Last administered on 12/03/16 08:17; Start 12/03/16 at 09:00 Metronidazole (Flagyl) 500 mg Q8HRS PO Last administered on 12/03/16 04:51; Start 12/02/16 at 22:00; Stop 12/03/16 at 09:54; Status DC Sodium Chloride 1,000 ml @ 150 mls/hr Q6H40M IV Last administered on t 08:09; Start 12/03/16 at 08:00 Vancomycin HCl 125 mg [id number] PO ; Start 12/03/16 at 13:00 Lactobacillus Acidophilus (Bacid, Anne Marie-Bid) 1 tab TIDWMEALS PO ; Start 12/03/16 at 12:00 Linezolid (Zyvox) 600 mg BID PO ; Start 12/03/16 at 10:00 Active Scripts Active Reported Neurontin (Gabapentin) 100 Mg Capsule 100 Mg PO TID Bacid Caplet (Acidoph/L.bulg/Bif.b/S.thermop) 1 Each Tablet 1 Each PO BID Cipro (Ciprofloxacin Hcl) 250 Mg Tablet 1 Tab PO BID Acetaminophen 500 Mg Tablet 2 Tab PO Q4HRS PRN Tramadol Hcl 50 Mg Tablet 25 Mg PO PRN Q6HRS Loperamide (Loperamide Hcl) 2 Mg Tablet 2 Mg PO PRN 2 caps initially then 1 cap each loose stool up to 8 caps in 24 hrs Capzasin Quick Relief Gel (Capsaicin/Menthol) 42.5 Gm Gel.w.appl 1 Pam TP TID PRN Torsemide 20 Mg Tablet 10 Mg PO Q3DAYS Mirapex (Pramipexole Di-Hcl) 0.25 Mg Tablet 1 Tab PO DAILY Metamucil Packet (Psyllium Seed (With Sugar)) 1 Each Packet 1 Each PO DAILY Hydrochlorothiazide Tablet (Hydrochlorothiazide) 12.5 Mg Tablet 12.5 Mg PO DAILY Atenolol 25 Mg Tablet 25 Mg PO DAILY Vitals/I & O Vital Sign - Last 24 Hours 12/02/16 12/02/16 12/02/16 12/02/16 11:00 15:00 19:00 20:00 Temp 97.5 96.7 97.7 97.5 96.7 97.7 Pulse 76 73 73 Resp 20 20 20 B/P (MAP) 87/57 (67) 103/58 (73) 86/33 (50) Pulse Ox 98 94 91 O2 Delivery Room Air Room Air Room Air Room Air O2 Flow Rate 2.0 2.0 12/02/16 12/03/16 12/03/16 12/03/16 23:00 03:02 07:00 08:00 Temp 97.5 97.5 97.7 97.5 97.5 97.7 Pulse 93 99 80 Resp 20 20 20 B/P (MAP) 84/53 (63) 96/59 (71) 111/56 (74) Pulse Ox 95 95 98 O2 Delivery Room Air Room Air Room Air Room Air Intake and Output 12/02/16 12/02/16 12/03/16 15:00 23:00 07:00 Intake Total 1000 ml 2300 ml 600 ml Balance 1000 ml 2300 ml 600 ml AMBER OCASIO MD December 03, 2016 10:53
[2016-12-03 11:00] VITALS: BP 88/46
--- NOTE | 2016-12-03 11:19 | PDOC2 ---
CONSULT Date of Consult Date of Consult DATE: 12/03/16 TIME: 11:07 Reason for Consult Reason for Consult: CARMEN Referring Physician Referring Physician: Dr Mars Identification/Chief Complaint Chief Complaint AMS Problems: Source Source: Chart review History of Present Illness Reason for Visit: as dictated Past Medical History Cardiovascular: HTN Pulmonary: No pertinent hx GI: No pertinent hx Heme/Onc: No pertinent hx Rheumatologic: No pertinent hx Infectious disease: No pertinent hx ENT: No pertinent hx Renal/: Chronic renal insuff Family History Family History: No Significant Social History No ALCOHOL: none Drugs: None Lives: Shelter Current Problem List Problem List Problems Medical Problems: (1) Acute renal failure Status: Acute (2) Dementia Status: Acute (3) Hemodynamic instability Status: Acute (4) Metabolic encephalopathy Status: Acute (5) Severe protein-calorie malnutrition Status: Acute (6) Urinary tract infection Status: Acute Current Medications Current Medications Current Medications Sodium Chloride 1,000 ml @ 1,000 mls/hr Q1H IV Last administered on 12/02/16 03:57; Start 12/02/16 at 03:00; Stop 12/02/16 at 04:59; Status DC Ceftriaxone Sodium 1 gm/ Sodium Chloride 50 ml @ 100 mls/hr Q24H IV Last administered on 12/03/16 04:51; Start 12/03/16 at 04:00 Ceftriaxone Sodium 50 ml @ 100 mls/hr 1X ONCE IV Last administered on 03:30; Start 12/02/16 at 03:30; Stop 12/02/16 at 03:59; Status DC Ondansetron HCl (Zofran) 4 mg PRN Q8HRS PRN IV NAUSEA/VOMITING; Start 12/02/16 at 04:15; Stop 12/03/16 at 04:14; Status DC Sodium Chloride 1,000 ml @ 150 mls/hr Q6H40M IV Last administered on 23:05; Start 12/02/16 at 04:15; Stop 12/03/16 at 04:14; Status DC Acetaminophen (Tylenol) 650 mg PRN Q4HRS PRN PO FEVER Last administered on 12/02 21:59; Start 12/02/16 at 04:15; Stop 12/03/16 at 04:14; Status DC Atenolol (Tenormin) 25 mg DAILY PO ; Start 12/02/16 at 09:00 Enoxaparin Sodium (Lovenox Per Pharmacy Prophylaxis Dosing) 1 each PRN DAILY PRN [facility] SEE COMMENTS; Start 12/02/16 at 08:45; Stop 12/02/16 at 15:54; Status DC Enoxaparin Sodium (Lovenox 30mg Syringe) 30 mg Q24H SQ Last administered on 09:56; Start 12/02/16 at 09:00; Stop 12/02/16 at 16:02; Status DC Sodium Bicarbonate (Sodium Bicarbonate) 650 mg BID PO Last administered on 12/03 08:09; Start 12/02/16 at 09:30 Heparin Sodium (Porcine) (Heparin Sq) 5,000 unit Q12HR SQ Last administered on 12/03/16 08:17; Start 12/03/16 at 09:00 Metronidazole (Flagyl) 500 mg Q8HRS PO Last administered on 12/03/16 04:51; Start 12/02/16 at 22:00; Stop 12/03/16 at 09:54; Status DC Sodium Chloride 1,000 ml @ 150 mls/hr Q6H40M IV Last administered on 08:09; Start 12/03/16 at 08:00 Vancomycin HCl 125 mg [id number] PO ; Start 12/03/16 at 13:00 Lactobacillus Acidophilus (Bacid, Anne Marie-Bid) 1 tab TIDWMEALS PO ; Start 12/03/16 at 12:00 Linezolid (Zyvox) 600 mg BID PO ; Start 12/03/16 at 10:00 Active Scripts Active Reported Neurontin (Gabapentin) 100 Mg Capsule 100 Mg PO TID Bacid Caplet (Acidoph/L.bulg/Bif.b/S.thermop) 1 Each Tablet 1 Each PO BID Cipro (Ciprofloxacin Hcl) 250 Mg Tablet 1 Tab PO BID Acetaminophen 500 Mg Tablet 2 Tab PO Q4HRS PRN Tramadol Hcl 50 Mg Tablet 25 Mg PO PRN Q6HRS Loperamide (Loperamide Hcl) 2 Mg Tablet 2 Mg PO PRN 2 caps initially then 1 cap each loose stool up to 8 caps in 24 hrs Capzasin Quick Relief Gel (Capsaicin/Menthol) 42.5 Gm Gel.w.appl 1 Pam TP TID PRN Torsemide 20 Mg Tablet 10 Mg PO Q3DAYS Mirapex (Pramipexole Di-Hcl) 0.25 Mg Tablet 1 Tab PO DAILY Metamucil Packet (Psyllium Seed (With Sugar)) 1 Each Packet 1 Each PO DAILY Hydrochlorothiazide Tablet (Hydrochlorothiazide) 12.5 Mg Tablet 12.5 Mg PO DAILY Atenolol 25 Mg Tablet 25 Mg PO DAILY Allergies Allergies: Coded Allergies: codeine (Unverified Allergy, Intermediate, 12/02/16) ROS Review of System unable to obtain from pt due to AMS Physical Exam Physical Exam General Appearance: barely Awake not Alert Oriented x 0 In no Distress Eyes: sclera anicteric Conjunctiva Normal EN: No EN Drainage Mucous Memb. dryish Neck: no JVD min JVP Supple no Thyromegaly CVS: S1 S2 ? Murmur No Gallop No Rub no Edema Resp: no Rales no Rhonchi no Acc. Muscle use GI: BAS +ve NO Bruit + Tender Non Distended : no CVA tenderness; no Suprapubic Tenderness SKIN: no petechial Rashes Breast Exam deferred Mu.Sk: Adequate passive ROM min Muscle Atrophy Heme: Unable to palpate Obvious LAD [ ] Splenomegaly NEURO: Unable to assess due to AMS, pt does not follow commands; no asterixis Psych: Unable ot currently assess Vital Signs Vital Signs Date Time Temp Pulse Resp B/P (MAP) Pulse Ox O2 Delivery O2 Flow Rate FiO2 12/03/16 08:00 Room Air 12/03/16 07:00 97.7 80 20 111/56 (74) 98 97.7 12/02/16 15:00 2.0 Assessment & Plan CARMEN - VMN improving with IVF. ? Pyelonephritis too? UTI without Hematuria - on IV Rocephin - C x pending Anemia: cehck Green[place] AMS - ? due to UTi vs Intra-abd pathology - ? some due to SIRS, underlying dementia too. DOubt CARMEN has much to do with it HypoTN: IVF as ordered Abd T'ness ? due to cystitis vs due to other intra-abd pathology - Have not ordered CT stone protocol since no hematuria was noted. Discussed Plan of Care and prognosis etc. at length with family. Labs Labs Laboratory Tests Test 12/02/16 02:25 12/02/16 02:52 12/02/16 07:30 12/03/16 03:10 Urine Collection Type U cath Urine Color Aide Urine Clarity Turbid Urine pH 8.0 Urine Specific [place] 1.015 Urine Protein 100 mg/dL (NEG-TRACE) Urine Glucose (UA) Negative mg/dL (NEG) Urine Ketones (Stick) Negative mg/dL (NEG) Urine Blood Moderate (NEG) Urine Nitrite Negative (NEG) Urine Bilirubin Negative (NEG) Urine Urobilinogen Dipstick 0.2 mg/dL (0.2 mg/dL) Urine Leukocyte Esterase Moderate (NEG) Urine RBC 6-10 /HPF (0-2) Urine WBC Tntc /HPF (0-4) Urine Squamous Epithelial Cells Mod /LPF Urine Bacteria Moderate /HPF (0-FEW) Urine Mucus Marked /LPF White Blood Count 8.8 x10^3/uL (4.0-11.0) 5.2 x10^3/uL (4.0-11.0) Red Blood Count 3.44 x10^6/uL (3.50-5.40) 3.00 x10^6/uL (3.50-5.40) Hemoglobin 10.5 g/dL (12.0-15.5) 9.1 g/dL (12.0-15.5) Hematocrit 31.4 % (36.0-47.0) 27.6 % (36.0-47.0) Mean Corpuscular Volume 91 fL (79-100) 92 fL (79-100) Mean Corpuscular Hemoglobin 31 pg (25-35) 30 pg (25-35) Mean Corpuscular Hemoglobin Concent 33 g/dL (31-37) 33 g/dL (31-37) Red Cell Distribution Width 12.8 % (11.5-14.5) 12.8 % (11.5-14.5) Platelet Count 157 x10^3/uL (140-400) 134 x10^3/uL (140-400) Neutrophils (%) (Auto) 77 % (31-73) 71 % (31-73) Lymphocytes (%) (Auto) 12 % (24-48) 16 % (24-48) Monocytes (%) (Auto) 10 % (0-9) 11 % (0-9) Eosinophils (%) (Auto) 0 % (0-3) 2 % (0-3) Basophils (%) (Auto) 0 % (0-3) 0 % (0-3) Neutrophils # (Auto) 6.8 x10^3uL (1.8-7.7) 3.7 x10^3uL (1.8-7.7) Lymphocytes # (Auto) 1.0 x10^3/uL (1.0-4.8) 0.8 x10^3/uL (1.0-4.8) Monocytes # (Auto) 0.9 x10^3/uL (0.0-1.1) 0.6 x10^3/uL (0.0-1.1) Eosinophils # (Auto) 0.0 x10^3/uL (0.0-0.7) 0.1 x10^3/uL (0.0-0.7) Basophils # (Auto) 0.0 x10^3/uL (0.0-0.2) 0.0 x10^3/uL (0.0-0.2) Sodium Level 126 mmol/L (136-145) 133 mmol/L (136-145) Potassium Level 4.5 mmol/L (3.5-5.1) 3.9 mmol/L (3.5-5.1) Chloride Level 91 mmol/L (98-107) 100 mmol/L (98-107) Carbon Dioxide Level 26 mmol/L (21-32) 22 mmol/L (21-32) Anion Gap 9 (6-14) 11 (6-14) Blood Urea Nitrogen 95 mg/dL (7-20) 75 mg/dL (7-20) Creatinine 2.8 mg/dL (0.6-1.0) 1.8 mg/dL (0.6-1.0) Estimated GFR (Cockcroft-Gault) 15.9 26.5 BUN/Creatinine Ratio 34 (6-20) Glucose Level 156 mg/dL (70-99) 84 mg/dL (70-99) Calcium Level 8.5 mg/dL (8.5-10.1) 7.7 mg/dL (8.5-10.1) Total Bilirubin 0.3 mg/dL (0.2-1.0) Aspartate Amino Transf (AST/SGOT) 23 U/L (15-37) Alanine Aminotransferase (ALT/SGPT) 14 U/L (14-59) Alkaline Phosphatase 53 U/L (46-116) Total Protein 6.1 g/dL (6.4-8.2) Albumin 2.2 g/dL (3.4-5.0) Albumin/Globulin Ratio 0.6 (1.0-1.7) Nasal Screen MRSA (PCR) Negative (Negative) Clostridium difficile Toxin (PCR) Positive (Negative) Magnesium Level 2.1 mg/dL (1.8-2.4) Laboratory Tests Test 12/03/16 03:10 White Blood Count 5.2 x10^3/uL (4.0-11.0) Red Blood Count 3.00 x10^6/uL (3.50-5.40) Hemoglobin 9.1 g/dL (12.0-15.5) Hematocrit 27.6 % (36.0-47.0) Mean Corpuscular Volume 92 fL (79-100) Mean Corpuscular Hemoglobin 30 pg (25-35) Mean Corpuscular Hemoglobin Concent 33 g/dL (31-37) Red Cell Distribution Width 12.8 % (11.5-14.5) Platelet Count 134 x10^3/uL (140-400) Neutrophils (%) (Auto) 71 % (31-73) Lymphocytes (%) (Auto) 16 % (24-48) Monocytes (%) (Auto) 11 % (0-9) Eosinophils (%) (Auto) 2 % (0-3) Basophils (%) (Auto) 0 % (0-3) Neutrophils # (Auto) 3.7 x10^3uL (1.8-7.7) Lymphocytes # (Auto) 0.8 x10^3/uL (1.0-4.8) Monocytes # (Auto) 0.6 x10^3/uL (0.0-1.1) Eosinophils # (Auto) 0.1 x10^3/uL (0.0-0.7) Basophils # (Auto) 0.0 x10^3/uL (0.0-0.2) Sodium Level 133 mmol/L (136-145) Potassium Level 3.9 mmol/L (3.5-5.1) Chloride Level 100 mmol/L (98-107) Carbon Dioxide Level 22 mmol/L (21-32) Anion Gap 11 (6-14) Blood Urea Nitrogen 75 mg/dL (7-20) Creatinine 1.8 mg/dL (0.6-1.0) Estimated GFR (Cockcroft-Gault) 26.5 Glucose Level 84 mg/dL (70-99) Calcium Level 7.7 mg/dL (8.5-10.1) Magnesium Level 2.1 mg/dL (1.8-2.4) JOHAN SHERMAN MD December 03, 2016 11:19
[2016-12-03] MEDS ORDERED: MAGNESIUM SULFATE 2GM 50 ML IV PRN (11:30)
[2016-12-03 11:42] LABS: % SAT IRON 12 % (15-34); IRON,SERUM 16 ug/dL (50-170)
[2016-12-03] MEDS: VANCOMYCIN 125 MG/2.5 ML ORAL SOLUTION. PO SCH ×3 (11:44→21:43)
[2016-12-03] MEDS: AMINO AC 3%/ELECTROLYTE/GLYCER 1,000 ML IV SCH (11:44)
[2016-12-03] MEDS: LACTOBACILLUS ACIDOPH & BULGAR 1 TABLET. PO SCH ×2 (11:44→17:05)
[2016-12-03] MEDS: LINEZOLID 600 MG TABLET PO SCH ×2 (11:44→21:44)
[2016-12-03 15:00] VITALS: BP 126/68
[2016-12-03 19:00] VITALS: BP 100/41
[2016-12-03 23:00] VITALS: BP 104/56
[2016-12-04] MEDS: AMINO AC 3%/ELECTROLYTE/GLYCER 1,000 ML IV SCH ×2 (01:28→11:51)
--- NOTE | 2016-12-04 01:51 | CONS ---
DATE OF CONSULTATION: PRIMARY PHYSICIAN: Dr. Mars. REASON FOR CONSULTATION: Acute renal failure. HISTORY OF PRESENT ILLNESS: The patient is an 89-year-old pleasant female who currently has some altered mental status. She usually gets her care at [facility]. She was noted to have altered mental status and dehydration, was brought to the ER for further evaluation. She was found to have "unstable vital signs" at the halfway. She is currently in a dementia unit. She does have a history of UTI based on the ER note. She was supposed to be getting torsemide 3 times a week instead has received torsemide 3 times a day and was found to be hypotensive, tachycardic and dehydrated. I am not able to get much in terms of information from the patient. Her creatinine was elevated at 2.8 yesterday when we were consulted; however, it was felt that the patient's insurance would mandate transfer to [facility], hence the consult was canceled. It was eventually found that the [facility] was ____ and that she would have to continue to be treated here in which case I was reconsulted for the same. Today, her creatinine is down to 1.8. She is being treated with Rocephin IV for possible UTI. Her blood pressures were 86/51 on presentation and has received IV fluids at 150 mL an hour until this morning. For rest of the details, please see electronic renal consult note. JOHAN SHERMAN MD DR: ARLEN/heidi JOB#: [id number] / [id number]
[2016-12-04 03:00] VITALS: BP 127/78
[2016-12-04] MEDS: IV NORMAL SALINE 1000ML BAG 1,000 ML IV SCH ×2 (04:00→10:40)
[2016-12-04 05:14] LABS: ALBUMIN 1.9 g/dL (3.4-5.0); CALCIUM 7.7 mg/dL (8.5-10.1); CREATININE 1.3 mg/dL (0.6-1.0); GFR 38.6; PHOSPHORUS 2.9 mg/dL (2.6-4.7); POTASSIUM 4.7 mmol/L (3.5-5.1)
[2016-12-04 07:20] VITALS: BP 91/64
[2016-12-04] MEDS: LACTOBACILLUS ACIDOPH & BULGAR 1 TABLET. PO SCH ×3 (08:49→16:37)
[2016-12-04] MEDS: SODIUM BICARBONATE 650 MG TABLET. PO SCH ×2 (08:49→20:48)
[2016-12-04] MEDS: VANCOMYCIN 125 MG/2.5 ML ORAL SOLUTION. PO SCH ×4 (08:49→20:48)
[2016-12-04] MEDS: ATENOLOL 25 MG TABLET. PO SCH ×2 (08:50→16:37)
[2016-12-04] MEDS: LINEZOLID 600 MG TABLET PO SCH ×2 (08:50→20:48)
[2016-12-04] MEDS: HEPARIN PF for SUB-Q USE 5,000 UNIT/0.5 ML VIAL. SQ SCH ×2 (09:04→21:01)
--- NOTE | 2016-12-04 09:39 | PDOC ---
SUBJECTIVE ROS CARMEN Doing Muchbetter today, RN reports some PO Intake too, much more awake and alert today CVS: no Orthopnea, no CP RESP: no SOB, no PRO GI: no Nausea, no Vomiting : no Dysuria, no Urgency OBJECTIVE Vital Signs Vital Signs Date Time Temp Pulse Resp B/P (MAP) Pulse Ox O2 Delivery O2 Flow Rate FiO2 12/04/16 08:50 113 91/64 12/04/16 07:20 97.7 18 97 Room Air 97.7 I & 0 Intake and Output 12/04/16 07:00 Intake Total 620 ml Output Total 1625 ml Balance -1005 ml Intake Oral 300 ml IV Total 320 ml Output Urine Total 1625 ml # Bowel Movements 1 PHYSICAL EXAM Physical Exam General Appearance: much more Awake more Alert Oriented x 0 -1 In no Distress Eyes: sclera anicteric Conjunctiva Normal EN: No EN Drainage Mucous Memb. mosit Neck: no JVD min JVP Supple no Thyromegaly CVS: S1 S2 ? Murmur No Gallop No Rub no Edema - tachy Resp: no Rales no Rhonchi no Acc. Muscle use GI: BS +ve NO Bruit + Tender min Distended : no CVA tenderness; no Suprapubic Tenderness Assessment & Plan CARMEN - VMN improving with IVF. Pt noted to have some Urinary retention yest and singletary was placed. Abd Pain - suspect due to Cdiff. KUB to R/o megacolon Fe Def Anemia: IV Venofer as ordered AMS - some due to SIRS, underlying dementia too. Appears to be somewhat better HypoTN: IVF as ordered Abd T'ness ? due to cystitis vs due to other intra-abd pathology - Have not ordered CT stone protocol since no hematuria was noted. C Diff colitis - D/w Dr Mars - hold off of TPn since she is trying to eat herself. Discussed Plan of Care and prognosis etc.with Pall care PROGRAM COUNSELOR - await goals of care. COMMENT/RELEVANT DATA Meds Current Medications Medications (Trade) Dose Ordered Sig/Kylah Start Time Stop Time Status Last Admin Dose Admin Acetaminophen (Tylenol) 650 mg PRN Q4HRS PRN 12/02/16 04:15 12/03/16 04:14 DC 12/02/16 21:59 650 MG Amino Acids/ Glycerin/ Electrolytes 1,000 ml @ 80 mls/hr [id number] 5/31/17 11:30 12/04/16 01:28 80 MLS/HR Atenolol (Tenormin) 25 mg DAILY 12/02/16 09:00 Ceftriaxone Sodium 1 gm/ Sodium Chloride 50 ml @ 100 mls/hr Q24H 12/03/16 04:00 12/04/16 03:47 100 MLS/HR Ceftriaxone Sodium 50 ml @ 100 mls/hr 1X ONCE 12/02/16 03:30 12/02/16 03:59 DC 12/02/16 03:30 100 MLS/HR Enoxaparin Sodium (Lovenox 30mg Syringe) 30 mg Q24H 12/02/16 09:00 12/02/16 16:02 DC 12/02/16 09:56 30 MG Enoxaparin Sodium (Lovenox Per Pharmacy Prophylaxis Dosing) 1 each PRN DAILY PRN 12/02/16 08:45 12/02/16 15:54 DC Heparin Sodium (Porcine) (Heparin Sq) 5,000 unit Q12HR 12/03/16 09:00 12/04/16 09:04 5,000 UNIT Iron Sucrose 200 mg/Sodium Chloride 110 ml @ 55 mls/hr 3X/WEEK 12/05/16 09:00 12/15/16 10:59 UNV Lactobacillus Acidophilus (Bacid, Anne Marie-Bid) 1 tab TIDWMEALS 12/03/16 12:00 12/04/16 08:49 1 TAB Linezolid (Zyvox) 600 mg BID 12/03/16 10:00 12/04/16 08:50 600 MG Magnesium Sulfate/ Dextrose 50 ml @ 25 mls/hr PRN DAILY PRN 12/03/16 11:30 Metronidazole (Flagyl) 500 mg Q8HRS 12/02/16 22:00 12/03/16 09:54 DC 12/03/16 04:51 500 MG Ondansetron HCl (Zofran) 4 mg PRN Q8HRS PRN 12/02/16 04:15 12/03/16 04:14 DC Sodium Bicarbonate (Sodium Bicarbonate) 650 mg BID 12/02/16 09:30 12/04/16 08:49 650 MG Sodium Chloride 1,000 ml @ 150 mls/hr Q6H40M 12/03/16 08:00 12/03/16 08:09 150 MLS/HR Vancomycin HCl 125 mg [id number] 12/03/16 13:00 12/04/16 08:49 125 MG Lab Laboratory Tests Test 12/04/16 03:30 Hemoglobin 10.0 g/dL (12.0-15.5) Sodium Level 136 mmol/L (136-145) Potassium Level 4.7 mmol/L (3.5-5.1) Chloride Level 103 mmol/L (98-107) Carbon Dioxide Level 24 mmol/L (21-32) Anion Gap 9 (6-14) Blood Urea Nitrogen 63 mg/dL (7-20) Creatinine 1.3 mg/dL (0.6-1.0) Estimated GFR (Cockcroft-Gault) 38.6 Glucose Level 134 mg/dL (70-99) Calcium Level 7.7 mg/dL (8.5-10.1) Phosphorus Level 2.9 mg/dL (2.6-4.7) Magnesium Level 1.9 mg/dL (1.8-2.4) Albumin 1.9 g/dL (3.4-5.0) JOHAN SHERMAN MD Dec 04, 2016 09:39
--- NOTE | 2016-12-04 09:46 | PDOC ---
PROGRESS NOTES Chief Complaint Chief Complaint UTI, acute renal failure dehydration, vasomotor nephropathy acute metabolic encephalopathy, UTI and uremia severe malnutrition, alb 2.2 on admit hyponatremia, hypovolemic weakness and debility after a fall, c. diff colitis, History of Present Illness History of Present Illness cont IV fluid, some improvement still very weak, passed swallow eval, needs assist awake and more responsive Vitals Vitals Vital Signs Date Time Temp Pulse Resp B/P (MAP) Pulse Ox O2 Delivery O2 Flow Rate FiO2 12/04/16 08:50 113 91/64 12/04/16 07:20 97.7 18 97 Room Air 97.7 Physical Exam General: Cooperative, No acute distress, Other (not oriented) Heart: Regular rate Lungs: Clear Abdomen: Normal bowel sounds, Soft Extremities: No clubbing, No edema Skin: No significant lesion Labs LABS Laboratory Tests Test 12/04/16 03:30 Hemoglobin 10.0 g/dL (12.0-15.5) Sodium Level 136 mmol/L (136-145) Potassium Level 4.7 mmol/L (3.5-5.1) Chloride Level 103 mmol/L (98-107) Carbon Dioxide Level 24 mmol/L (21-32) Anion Gap 9 (6-14) Blood Urea Nitrogen 63 mg/dL (7-20) Creatinine 1.3 mg/dL (0.6-1.0) Estimated GFR (Cockcroft-Gault) 38.6 Glucose Level 134 mg/dL (70-99) Calcium Level 7.7 mg/dL (8.5-10.1) Phosphorus Level 2.9 mg/dL (2.6-4.7) Magnesium Level 1.9 mg/dL (1.8-2.4) Albumin 1.9 g/dL (3.4-5.0) Review of Systems Review of Systems no n/v abd pain better Assessment and Plan Assessmemt and Plan Problems Medical Problems: (1) Acute renal failure Status: Acute (2) Dementia Status: Acute (3) Hemodynamic instability Status: Acute (4) Metabolic encephalopathy Status: Acute (5) Severe protein-calorie malnutrition Status: Acute (6) Urinary tract infection Status: Acute Problems: Comment Review of Relevant I have reviewed the following items manjinder (where applicable) has been applied. Labs Laboratory Tests Test 12/03/16 03:10 12/04/16 03:30 White Blood Count 5.2 x10^3/uL (4.0-11.0) Red Blood Count 3.00 x10^6/uL (3.50-5.40) Hemoglobin 9.1 g/dL (12.0-15.5) 10.0 g/dL (12.0-15.5) Hematocrit 27.6 % (36.0-47.0) Mean Corpuscular Volume 92 fL (79-100) Mean Corpuscular Hemoglobin 30 pg (25-35) Mean Corpuscular Hemoglobin Concent 33 g/dL (31-37) Red Cell Distribution Width 12.8 % (11.5-14.5) Platelet Count 134 x10^3/uL (140-400) Neutrophils (%) (Auto) 71 % (31-73) Lymphocytes (%) (Auto) 16 % (24-48) Monocytes (%) (Auto) 11 % (0-9) Eosinophils (%) (Auto) 2 % (0-3) Basophils (%) (Auto) 0 % (0-3) Neutrophils # (Auto) 3.7 x10^3uL (1.8-7.7) Lymphocytes # (Auto) 0.8 x10^3/uL (1.0-4.8) Monocytes # (Auto) 0.6 x10^3/uL (0.0-1.1) Eosinophils # (Auto) 0.1 x10^3/uL (0.0-0.7) Basophils # (Auto) 0.0 x10^3/uL (0.0-0.2) Reticulocyte Count (auto) 1.2 % (0.5-2.5) Sodium Level 133 mmol/L (136-145) 136 mmol/L (136-145) Potassium Level 3.9 mmol/L (3.5-5.1) 4.7 mmol/L (3.5-5.1) Chloride Level 100 mmol/L (98-107) 103 mmol/L (98-107) Carbon Dioxide Level 22 mmol/L (21-32) 24 mmol/L (21-32) Anion Gap 11 (6-14) 9 (6-14) Blood Urea Nitrogen 75 mg/dL (7-20) 63 mg/dL (7-20) Creatinine 1.8 mg/dL (0.6-1.0) 1.3 mg/dL (0.6-1.0) Estimated GFR (Cockcroft-Gault) 26.5 38.6 Glucose Level 84 mg/dL (70-99) 134 mg/dL (70-99) Calcium Level 7.7 mg/dL (8.5-10.1) 7.7 mg/dL (8.5-10.1) Magnesium Level 2.1 mg/dL (1.8-2.4) 1.9 mg/dL (1.8-2.4) Iron Level 16 ug/dL (50-170) Total Iron Binding Capacity 136 ug/dL (250-450) Iron Saturation 12 % (15-34) Ferritin 225 ng/mL (8-252) Phosphorus Level 2.9 mg/dL (2.6-4.7) Albumin 1.9 g/dL (3.4-5.0) Laboratory Tests Test 12/04/16 03:30 Hemoglobin 10.0 g/dL (12.0-15.5) Sodium Level 136 mmol/L (136-145) Potassium Level 4.7 mmol/L (3.5-5.1) Chloride Level 103 mmol/L (98-107) Carbon Dioxide Level 24 mmol/L (21-32) Anion Gap 9 (6-14) Blood Urea Nitrogen 63 mg/dL (7-20) Creatinine 1.3 mg/dL (0.6-1.0) Estimated GFR (Cockcroft-Gault) 38.6 Glucose Level 134 mg/dL (70-99) Calcium Level 7.7 mg/dL (8.5-10.1) Phosphorus Level 2.9 mg/dL (2.6-4.7) Magnesium Level 1.9 mg/dL (1.8-2.4) Albumin 1.9 g/dL (3.4-5.0) Medications Current Medications Sodium Chloride 1,000 ml @ 1,000 mls/hr Q1H IV Last administered on 12/02/16 03:57; Start 12/02/16 at 03:00; Stop 12/02/16 at 04:59; Status DC Ceftriaxone Sodium 1 gm/ Sodium Chloride 50 ml @ 100 mls/hr Q24H IV Last administered on 12/04/16 03:47; Start 12/03/16 at 04:00 Ceftriaxone Sodium 50 ml @ 100 mls/hr 1X ONCE IV Last administered on 03:30; Start 12/02/16 at 03:30; Stop 12/02/16 at 03:59; Status DC Ondansetron HCl (Zofran) 4 mg PRN Q8HRS PRN IV NAUSEA/VOMITING; Start 12/02/16 at 04:15; Stop 12/03/16 at 04:14; Status DC Sodium Chloride 1,000 ml @ 150 mls/hr Q6H40M IV Last administered on 23:05; Start 12/02/16 at 04:15; Stop 12/03/16 at 04:14; Status DC Acetaminophen (Tylenol) 650 mg PRN Q4HRS PRN PO FEVER Last administered on 12/02 21:59; Start 12/02/16 at 04:15; Stop 12/03/16 at 04:14; Status DC Atenolol (Tenormin) 25 mg DAILY PO ; Start 12/02/16 at 09:00 Enoxaparin Sodium (Lovenox Per Pharmacy Prophylaxis Dosing) 1 each PRN DAILY PRN MC SEE COMMENTS; Start 12/02/16 at 08:45; Stop 12/02/16 at 15:54; Status DC Enoxaparin Sodium (Lovenox 30mg Syringe) 30 mg Q24H SQ Last administered on 09:56; Start 12/02/16 at 09:00; Stop 12/02/16 at 16:02; Status DC Sodium Bicarbonate (Sodium Bicarbonate) 650 mg BID PO Last administered on 08:49; Start 12/02/16 at 09:30 Heparin Sodium (Porcine) (Heparin Sq) 5,000 unit Q12HR SQ Last administered on 12/04/16 09:04; Start 12/03/16 at 09:00 Metronidazole (Flagyl) 500 mg Q8HRS PO Last administered on 12/03/16 04:51; Start 12/02/16 at 22:00; Stop 12/03/16 at 09:54; Status DC Sodium Chloride 1,000 ml @ 150 mls/hr Q6H40M IV Last administered on 08:09; Start 12/03/16 at 08:00 Vancomycin HCl 125 mg [id number] PO Last administered on 12/04/16 08:49; Start at 13:00 Lactobacillus Acidophilus (Bacid, Anne Marie-Bid) 1 tab TIDWMEALS PO Last administered on 12/04/16 08:49; Start 12/03/16 at 12:00 Linezolid (Zyvox) 600 mg BID PO Last administered on 12/04/16 08:50; Start at 10:00 Magnesium Sulfate/ Dextrose 50 ml @ 25 mls/hr PRN DAILY PRN IV for Mag < 1.7 on am labs; Start 12/03/16 at 11:30 Amino Acids/ Glycerin/ Electrolytes 1,000 ml @ 80 mls/hr [id number] IV Last administered on 12/04/16 01:28; Start 12/03/16 at 11:30 Iron Sucrose 200 mg/Sodium Chloride 110 ml @ 55 mls/hr 3X/WEEK IV ; Start at 09:00; Stop 12/15/16 at 10:59; Status UNV Active Scripts Active Reported Neurontin (Gabapentin) 100 Mg Capsule 100 Mg PO TID Bacid Caplet (Acidoph/L.bulg/Bif.b/S.thermop) 1 Each Tablet 1 Each PO BID Cipro (Ciprofloxacin Hcl) 250 Mg Tablet 1 Tab PO BID Acetaminophen 500 Mg Tablet 2 Tab PO Q4HRS PRN Tramadol Hcl 50 Mg Tablet 25 Mg PO PRN Q6HRS Loperamide (Loperamide Hcl) 2 Mg Tablet 2 Mg PO PRN 2 caps initially then 1 cap each loose stool up to 8 caps in 24 hrs Capzasin Quick Relief Gel (Capsaicin/Menthol) 42.5 Gm Gel.w.appl 1 Pam TP TID PRN Torsemide 20 Mg Tablet 10 Mg PO Q3DAYS Mirapex (Pramipexole Di-Hcl) 0.25 Mg Tablet 1 Tab PO DAILY Metamucil Packet (Psyllium Seed (With Sugar)) 1 Each Packet 1 Each PO DAILY Hydrochlorothiazide Tablet (Hydrochlorothiazide) 12.5 Mg Tablet 12.5 Mg PO DAILY Atenolol 25 Mg Tablet 25 Mg PO DAILY Vitals/I & O Vital Sign - Last 24 Hours 5/31/12/03/16 12/03/16 12/03/16 11:00 15:00 19:00 20:00 Temp 98.8 99.1 99.1 98.8 99.1 99.1 Pulse 108 119 117 Resp 20 20 18 B/P (MAP) 88/46 (60) 126/68 (87) 100/41 (60) Pulse Ox 96 95 93 O2 Delivery Room Air Room Air Room Air Room Air 12/03/16 12/04/16 12/04/16 12/04/16 23:00 03:00 07:20 08:50 Temp 98.6 97.9 97.7 98.6 97.9 97.7 Pulse 120 119 113 113 Resp 18 18 18 B/P (MAP) 104/56 (72) 127/78 (94) 91/64 (73) 91/64 Pulse Ox 96 97 97 O2 Delivery Room Air Room Air Room Air Intake and Output 12/03/16 12/03/16 12/04/16 14:59 22:59 06:59 Intake Total 620 ml Output Total 725 ml 900 ml Balance -105 ml -900 ml Nutrition Consultation Dietary Evaluation: Recommendations by RD: Add supplement feedings Comments: boost plus boost puddding REC mvi, vit c Expected Outcomes/Goals: to meet > 50% est nutr needs Interpretation of weight loss: >5% in 1 month Malnutrition Findings: Food and Nutrition Intake (Sev: <50% est energy req 5days Weight Status: Appropriate AMBER OCASIO MD Dec 04, 2016 09:46
[2016-12-04 10:50] VITALS: BP 129/62
[2016-12-04] MEDS: ACETAMINOPHEN 325 MG TABLET. PO PRN (11:51)
[2016-12-04 15:23] VITALS: BP 129/71
--- NOTE | 2016-12-04 16:19 | RAD ---
Abdomen radiograph History: C. Difficile colitis, assess:. Comparison: 12/02/2016. Findings: AP supine abdomen radiograph. Bowel gas pattern is nonspecific, without evidence of obstruction. No radiographic evidence of colitis is seen, although colitis is not excluded. Degenerative dextroconvex scoliosis of the spine is seen. Aortic atherosclerosis is seen. No gross pneumoperitoneum is identified. Impression: Nonspecific bowel gas pattern.
--- NOTE | 2016-12-04 17:00 | CONS ---
DATE OF CONSULTATION: 12/03/2016 INFECTIOUS DISEASE CONSULTATION LOCATION: The patient's room is 500. REQUESTING PHYSICIAN: Ny Mars M.D. REASON FOR CONSULTATION: C. difficile. HISTORY OF PRESENT ILLNESS: The patient is an 89-year-old female with dementia, not a very good historian; however, there are records available from as well as her nursing facility. It appears that she was admitted to the [facility] on 12/01/2016 secondary to fall and concern for sepsis. Cultures were obtained. She did have a urine culture that was positive for E. coli, sensitive to Augmentin, nitrofurantoin, gentamicin, Bactrim, Zosyn, tetracycline, cefepime, Invanz, ceftriaxone. She did have a blood culture that was positive for Gram-positive cocci resembling Staph, but I did contact Microbiology this morning and there was 1 bottle and it was a coag-negative Staph. It appears she was discharged on cefpodoxime, which she took at the nursing facility on 11/10/2016. She had another urinary tract infection with VRE. She was placed on nitrofurantoin, but also C. diff was positive on 11/10/2016 and she was placed on 14 days of metronidazole. She is now brought to [facility] on 12/02/2016 secondary to dehydration. Apparently, there is concern for some fluid overload. She had been given torsemide, but she has developed mental status change. She was hypertensive and tachycardic. Urine is questionable for UTI in which she had a moderate amount of squamous cells. It could represent a contamination. She had a normal white blood cell count with normal differential, but her C. diff was positive on the . She underwent acute abdominal series that did not show any acute findings in the chest or abdomen. She has been placed on IV Rocephin and oral metronidazole. Currently, she is lying in bed. She is working with physical therapy, but she is minimally responsive. PAST MEDICAL HISTORY: Positive for recurrent UTIs with incontinence, bilateral knee pain, history of uterine cancer, back pain, has a history of diverticulitis. PAST SURGICAL HISTORY: Positive for cataract, hysterectomy, colonoscopy, and wrist surgery for fracture. REVIEW OF SYSTEMS: Unreliable and she did not have any complications. SOCIAL HISTORY: She is a [facility] resident. No tobacco. FAMILY HISTORY: Positive for rheumatoid arthritis, myocardial infarctions and cancers. ALLERGIES: LISTED LASIX AND CODEINE FROM . CURRENT MEDICATIONS: Include Rocephin, Tenormin, Lovenox, and metronidazole. Other meds are available and reviewed in the chart. PHYSICAL EXAMINATION: VITAL SIGNS: She has been afebrile. Temperature 97.7, pulse 80, respirations 20, blood pressure 111/56, satting 98% on room air. CONSTITUTIONAL: She is lying in the bed. She is in no acute distress. She did open her eyes. HEENT: Pupils are status post cataract surgery. Oral cavity, pharynx is dry. NECK: Supple, no JVD. LUNGS: Decreased in the bases. HEART: S1, S2. ABDOMEN: ____ obese, distended, no guarding or rebound. EXTREMITIES: No clubbing, cyanosis or gross edema. SKIN: Warm to touch without signs of rash. NEUROLOGIC: She is demented, but minimally responsive, but did cooperate somewhat. PSYCHIATRIC: Affect was flat. LABORATORY DATA: White count 5.2, hemoglobin 9.1, platelets of 134 with 71 neutrophils, 16 lymphs. Creatinine 1.0, glucose 84. Normal liver function study tests. IMAGING: Reviewed the history of present illness and MRSA screen was negative. ____ Radiology reviewed in history of present illness. IMPRESSION: 1. Clostridium difficile positive from the . This is recurrent. She was on Flagyl at the [facility] for Clostridium difficile; started on 11/10/2016 per the records. 2. Questionable urinary tract infection. Urine looks questionably contaminated. She had recent Escherichia coli in and was on Macrobid at the [facility] for VRE ____. 3. Acute kidney injury. 4. Dementia. RECOMMENDATIONS: For now, we will change to p.o. vancomycin. We will continue the Rocephin for now, add Zyvox, add probiotics. Follow up the labs and cultures. I did review medical records as well as ____ records and talked to Micro. Thank you for allowing to participate in this patient's care. If you have any questions, please do not hesitate to contact me. KALYAN KESSLER MD DR: RICHARD/heidi JOB#: [id number] / [id number]
--- NOTE | 2016-12-04 17:35 | PDOC2 ---
PALLIATIVE CARE Palliative Care Note Palliative Care Consult requested by Dr. Marmolejo to address goals of care Met with son Damon PERSAUD; son Wm PERSAUD and his Patient alert. ate breakfast this am. and was visiting with son earlier. Family sees drastic improvement of LOC Reviewed medical condition: Acute renal failure--improved with medication adjustment and fluids; dementia; severe p/c malnutrition Discussed overall medical condition; family would like to continue with aggressive care. Discussed challenges that may be seen in future such and feeding tubes, dialysis etc. Results of Swallow evaluation reviewed. Confirmed Code Status: DNR.DNI Outside the hospital form completed. Reviewed AD. Copy placed on record. Discharge plan will be discussed with Nae LUDWIG after meeting. Plan: Continue current medical treatment plan DNR/DNI LUIS CAAL Dec 04, 2016 17:35
[2016-12-04 19:00] VITALS: BP 131/71
[2016-12-04 23:00] VITALS: BP 133/79
[2016-12-05] MEDS: AMINO AC 3%/ELECTROLYTE/GLYCER 1,000 ML IV SCH ×2 (01:00→12:23)
[2016-12-05 03:00] VITALS: BP 124/70
--- NOTE | 2016-12-05 05:23 | CONS ---
DATE OF CONSULTATION: 12/04/2016 CHIEF COMPLAINT: Urinary retention, urinary tract infection. HISTORY OF PRESENT ILLNESS: This is an 89-year-old female with advanced dementia. She was admitted to the hospital through the Emergency Room from her [facility] due to a change in status. She was found to be dehydrated, and urinary tract infection and her vitals were somewhat stable. She was admitted to the hospital for IV hydration and antibiotic therapy. PAST MEDICAL HISTORY: The patient has a history of advanced dementia, Alzheimer's type. History of recurrent urinary tract infections. History of hypertension. The chart mentions that she has a history of cancer though the type of cancer is not specified. There is no family members present at this time. PAST SURGICAL HISTORY: The patient has had cataract surgery. Further medical history unobtainable due to the patient's dementia. PHYSICAL EXAMINATION: GENERAL DESCRIPTION: An 89-year-old female. She is not alert to time or place. She is not a viable medical pathologist. She does state that she has a history of urinary incontinence. ABDOMEN: Soft, nontender. Negative for flank pain to palpation bilaterally. No palpable abdominal masses. No suprapubic tenderness. The patient has indwelling Osullivan catheter draining kirti colored urine. EXTREMITIES: Negative for cyanosis bilaterally. LABORATORY DATA: Urine culture reveals Proteus urinary tract infection, sensitive to several oral antibiotics. The patient's current white blood cell count is 5.2, hemoglobin is 9.1, hematocrit 27.6, platelets ____. Chemistries: The patient's creatinine on admission was 1.8, her BUN is 75, it has improved with IV hydration and current creatinine 1.3, BUN 63. Urinalysis on admission, kirti colored, turbid, moderate leukocytes, 6-10 red blood cells, too numerous to count white blood cells, moderate bacteria. X-RAY STUDIES: No x-rays pertinent to the system. IMPRESSION: 1. Urinary retention -- Osullivan catheter was placed when the patient arrived at the hospital. There is no documentation ____ amount of urine received on catheterization. 2. Urinary tract infection -- Proteus. 3. Advanced dementia. SUGGESTIONS: 1. It is my understanding that the patient is currently not ambulatory. She is extremely lethargic. I would recommend continuing her Osullivan catheter until her overall mobility status improves. 2. She is normally seen by physicians at , which probably have a better idea as to her bladder function status. I would recommend maintaining Osullivan catheter to dependent drainage bag until she follows up with her physicians at [facility]. Her renal function has improved with Osullivan catheter drainage. Thank you for the opportunity to participate in evaluation of this patient. CATIA TAVERA DO DR: ÁNGEL/heidi JOB#: [id number] / [id number]
[2016-12-05 06:14] LABS: BASO % 0 % (0-3); EOS % 3 % (0-3); HEMATOCRIT 27.4 % (36.0-47.0); HEMOGLOBIN 9.6 g/dL (12.0-15.5); LYMPH % 18 % (24-48); MEAN CORPUSCULAR HEMOGLOBIN 31 pg (25-35); MEAN CORPUSCULAR HGB CONC 35 g/dL (31-37); MEAN CORPUSCULAR VOLUME 89 fL (79-100); MONO % 8 % (0-9); NEUT % 71 % (31-73); PLATELET COUNT 191 x10^3/uL (140-400); RED BLOOD COUNT 3.07 x10^6/uL (3.50-5.40); RED CELL DISTRIBUTION WIDTH 12.9 % (11.5-14.5); WHITE BLOOD COUNT 5.6 x10^3/uL (4.0-11.0)
[2016-12-05 06:32] LABS: ALBUMIN 1.9 g/dL (3.4-5.0); CALCIUM 8.2 mg/dL (8.5-10.1); CREATININE 0.8 mg/dL (0.6-1.0); GFR 67.5; MAGNESIUM 2.2 mg/dL (1.8-2.4); PHOSPHORUS 2.4 mg/dL (2.6-4.7); POTASSIUM 4.8 mmol/L (3.5-5.1)
[2016-12-05 07:00] VITALS: BP 113/43
[2016-12-05] MEDS: LACTOBACILLUS ACIDOPH & BULGAR 1 TABLET. PO SCH ×4 (08:00→17:00)
[2016-12-05] MEDS: LINEZOLID 600 MG TABLET PO SCH ×2 (09:00→09:36)
[2016-12-05] MEDS: VANCOMYCIN 125 MG/2.5 ML ORAL SOLUTION. PO SCH ×5 (09:00→21:00)
[2016-12-05] MEDS: IRON SUCROSE COMPLEX 200 MG in IV NORMAL SALINE 100ML 100 ML IV SCH ×2 (09:00→09:34)
[2016-12-05] MEDS: ATENOLOL 25 MG TABLET. PO SCH (09:00)
[2016-12-05] MEDS: HEPARIN PF for SUB-Q USE 5,000 UNIT/0.5 ML VIAL. SQ SCH ×2 (09:00→21:00)
[2016-12-05] MEDS: SODIUM BICARBONATE 650 MG TABLET. PO SCH ×3 (09:00→21:00)
[2016-12-05] MEDS: ACETAMINOPHEN 325 MG TABLET. PO PRN (10:31)
--- NOTE | 2016-12-05 10:31 | PDOC2 ---
PALLIATIVE CARE Palliative Care Note Palliative Care Patient awakens with verbal stimulation. Agitated. Denies pain, SOB, nausea. Asked if she was hungry. "NO" Labs reviewed. Spoke with Wm -son/DPOA. Patient continues on IV/PO antibiotics. Iron IV infusing. Patient continues to have liquid stools. Nae LUDWIG assisting with discharge plan. LUIS CAAL Dec 05, 2016 10:31
[2016-12-05 11:00] VITALS: BP 130/76
--- NOTE | 2016-12-05 11:57 | PDOC ---
SUBJECTIVE ROS CARMEN OBJECTIVE Vital Signs Vital Signs Date Time Temp Pulse Resp B/P (MAP) Pulse Ox O2 Delivery O2 Flow Rate FiO2 12/05/16 03:00 98.1 99 18 124/70 (88) 97 Room Air 98.1 12/04/16 20:00 2.0 I & 0 Intake and Output 12/05/16 07:00 Intake Total 120 ml Output Total 2525 ml Balance -2405 ml Intake Oral 120 ml Output Urine Total 2525 ml # Bowel Movements 3 PHYSICAL EXAM Physical Exam General Appearance: Awake: Alert Oriented x 0-1 Neck: No JVD or JVP Chest: CTA Rony Heart: S1 S2 Abdomen - Soft NTND Extremities - No Edema DIAGNOSIS/ASSESSMENT Assessment & Plan CARMEN resolved low phos - IV NaPhos son conteplating comfort care Will sign off Problems: COMMENT/RELEVANT DATA Meds Current Medications Medications (Trade) Dose Ordered Sig/Kylah Start Time Stop Time Status Last Admin Dose Admin Acetaminophen (Tylenol) 650 mg PRN Q6HRS PRN 12/04/16 11:15 12/04/16 11:51 650 MG Amino Acids/ Glycerin/ Electrolytes 1,000 ml @ 80 mls/hr [id number] 12/03/16 11:30 12/05/16 01:00 80 MLS/HR Atenolol (Tenormin) 25 mg DAILY 12/02/16 09:00 12/04/16 16:37 25 MG Ceftriaxone Sodium 1 gm/ Sodium Chloride 50 ml @ 100 mls/hr Q24H 12/03/16 04:00 12/05/16 06:09 100 MLS/HR Ceftriaxone Sodium 50 ml @ 100 mls/hr 1X ONCE 12/02/16 03:30 12/02/16 03:59 DC 12/02/16 03:30 100 MLS/HR Enoxaparin Sodium (Lovenox 30mg Syringe) 30 mg Q24H 12/02/16 09:00 12/02/16 16:02 DC 12/02/16 09:56 30 MG Enoxaparin Sodium (Lovenox Per Pharmacy Prophylaxis Dosing) 1 each PRN DAILY PRN 12/02/16 08:45 12/02/16 15:54 DC Heparin Sodium (Porcine) (Heparin Sq) 5,000 unit Q12HR 12/03/16 09:00 12/04/16 21:01 5,000 UNIT Iron Sucrose 200 mg/Sodium Chloride 110 ml @ 55 mls/hr 3X/WEEK 12/05/16 09:00 12/15/16 10:59 Lactobacillus Acidophilus (Bacid, Anne Marie-Bid) 1 tab TIDWMEALS 12/03/16 12:00 12/04/16 16:37 1 TAB Linezolid (Zyvox) 600 mg BID 12/03/16 10:00 12/04/16 20:48 600 MG Magnesium Sulfate/ Dextrose 50 ml @ 25 mls/hr PRN DAILY PRN 12/03/16 11:30 Metronidazole (Flagyl) 500 mg Q8HRS 12/02/16 22:00 12/03/16 09:54 DC 12/03/16 04:51 500 MG Ondansetron HCl (Zofran) 4 mg PRN Q8HRS PRN 12/02/16 04:15 12/03/16 04:14 DC Sodium Bicarbonate (Sodium Bicarbonate) 650 mg BID 12/02/16 09:30 12/04/16 20:48 650 MG Sodium Chloride 1,000 ml @ 150 mls/hr Q6H40M 12/03/16 08:00 12/04/16 16:51 DC 12/03/16 08:09 150 MLS/HR Vancomycin HCl 125 mg [id number] 12/03/16 13:00 12/04/16 20:48 125 MG Lab Laboratory Tests Test 12/05/16 05:00 White Blood Count 5.6 x10^3/uL (4.0-11.0) Red Blood Count 3.07 x10^6/uL (3.50-5.40) Hemoglobin 9.6 g/dL (12.0-15.5) Hematocrit 27.4 % (36.0-47.0) Mean Corpuscular Volume 89 fL (79-100) Mean Corpuscular Hemoglobin 31 pg (25-35) Mean Corpuscular Hemoglobin Concent 35 g/dL (31-37) Red Cell Distribution Width 12.9 % (11.5-14.5) Platelet Count 191 x10^3/uL (140-400) Neutrophils (%) (Auto) 71 % (31-73) Lymphocytes (%) (Auto) 18 % (24-48) Monocytes (%) (Auto) 8 % (0-9) Eosinophils (%) (Auto) 3 % (0-3) Basophils (%) (Auto) 0 % (0-3) Neutrophils # (Auto) 4.0 x10^3uL (1.8-7.7) Lymphocytes # (Auto) 1.0 x10^3/uL (1.0-4.8) Monocytes # (Auto) 0.4 x10^3/uL (0.0-1.1) Eosinophils # (Auto) 0.1 x10^3/uL (0.0-0.7) Basophils # (Auto) 0.0 x10^3/uL (0.0-0.2) Sodium Level 135 mmol/L (136-145) Potassium Level 4.8 mmol/L (3.5-5.1) Chloride Level 103 mmol/L (98-107) Carbon Dioxide Level 23 mmol/L (21-32) Anion Gap 9 (6-14) Blood Urea Nitrogen 47 mg/dL (7-20) Creatinine 0.8 mg/dL (0.6-1.0) Estimated GFR (Cockcroft-Gault) 67.5 Glucose Level 90 mg/dL (70-99) Calcium Level 8.2 mg/dL (8.5-10.1) Phosphorus Level 2.4 mg/dL (2.6-4.7) Magnesium Level 2.2 mg/dL (1.8-2.4) Albumin 1.9 g/dL (3.4-5.0) JOHAN SHERMAN MD Dec 05, 2016 11:57
--- NOTE | 2016-12-05 12:08 | PDOC ---
Infectious Disease Note Subjective Subjective Patient refusing oral intake Periods of agitation and combativeness Family decided to focus on comfort They don't want peg-tube or restart IV for IV abx No fever Vital Sign Vital Signs Vital Signs Date Time Temp Pulse Resp B/P (MAP) Pulse Ox O2 Delivery O2 Flow Rate FiO2 12/05/16 03:00 98.1 99 18 124/70 (88) 97 Room Air 98.1 12/04/16 20:00 2.0 Physical Exam PHYSICAL EXAM GENERAL: Lying in bed, relaxed appearance, smiled, LUNGS: Clear anteriorly, nonlabored CV: S1 S2 ABDOMEN: BS present, soft, no grimace or guarding to palpation EXT: No edema or cyanosis SKIN: without rash. No IV access Labs Lab Laboratory Tests Test 12/05/16 05:00 White Blood Count 5.6 x10^3/uL (4.0-11.0) Red Blood Count 3.07 x10^6/uL (3.50-5.40) Hemoglobin 9.6 g/dL (12.0-15.5) Hematocrit 27.4 % (36.0-47.0) Mean Corpuscular Volume 89 fL (79-100) Mean Corpuscular Hemoglobin 31 pg (25-35) Mean Corpuscular Hemoglobin Concent 35 g/dL (31-37) Red Cell Distribution Width 12.9 % (11.5-14.5) Platelet Count 191 x10^3/uL (140-400) Neutrophils (%) (Auto) 71 % (31-73) Lymphocytes (%) (Auto) 18 % (24-48) Monocytes (%) (Auto) 8 % (0-9) Eosinophils (%) (Auto) 3 % (0-3) Basophils (%) (Auto) 0 % (0-3) Neutrophils # (Auto) 4.0 x10^3uL (1.8-7.7) Lymphocytes # (Auto) 1.0 x10^3/uL (1.0-4.8) Monocytes # (Auto) 0.4 x10^3/uL (0.0-1.1) Eosinophils # (Auto) 0.1 x10^3/uL (0.0-0.7) Basophils # (Auto) 0.0 x10^3/uL (0.0-0.2) Sodium Level 135 mmol/L (136-145) Potassium Level 4.8 mmol/L (3.5-5.1) Chloride Level 103 mmol/L (98-107) Carbon Dioxide Level 23 mmol/L (21-32) Anion Gap 9 (6-14) Blood Urea Nitrogen 47 mg/dL (7-20) Creatinine 0.8 mg/dL (0.6-1.0) Estimated GFR (Cockcroft-Gault) 67.5 Glucose Level 90 mg/dL (70-99) Calcium Level 8.2 mg/dL (8.5-10.1) Phosphorus Level 2.4 mg/dL (2.6-4.7) Magnesium Level 2.2 mg/dL (1.8-2.4) Albumin 1.9 g/dL (3.4-5.0) Objective Assessment Recurrent C-diff infection, 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 UTI - UA looks ? contaminated, (recent Ecoli at [facility]. 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 The chart was reviewed. The case was discussed. Agree with the plan of care. ANDREW ECKERT APRN Dec 05, 2016 12:08 ALIREZA SHERMAN MD Dec 05, 2016 16:04
[2016-12-05] MEDS ORDERED: SODIUM PHOSPHATE 20 MMOL in IV DEXTROSE 5% 250 ML IV ONE (12:30)
--- NOTE | 2016-12-05 13:03 | PDOC2 ---
PALLIATIVE CARE Palliative Care Note Palliative Care Family is requesting comfort care after visiting with patient. Patient does not want to continue current aggressive treatment and family wants to follow her wishes and GOGO LUDWIG will assist in discharge plan. Family would like patient to return to [facility] with Hospice Care. Nae will assist with selection of Hospice Agency. LUIS CAAL Dec 05, 2016 13:03
--- NOTE | 2016-12-05 17:09 | PDOC ---
PROGRESS NOTES Chief Complaint Chief Complaint AFTT UTI acute renal failure Dehydration Vasomotor nephropathy Acute metabolic encephalopathy Uremia Severe malnutrition, alb 2.2 on admit Hyponatremia Hypovolemic Weakness and debility after a fall, C-diff colitis, History of Present Illness History of Present Illness Family meeting with Palliative care Still very weak n\Needs assist with eating DW case mgmt Plan is dc with Hospice tomorrow Vitals Vitals Vital Signs Date Time Temp Pulse Resp B/P (MAP) Pulse Ox O2 Delivery O2 Flow Rate FiO2 12/05/16 11:00 98.1 68 18 130/76 (94) 97 Room Air 98.1 12/04/16 20:00 2.0 Physical Exam General: Cooperative, No acute distress, Other (not oriented) Heart: Regular rate Lungs: Clear Abdomen: Normal bowel sounds, Soft Extremities: No clubbing, No edema Skin: No significant lesion Labs LABS Laboratory Tests Test 12/05/16 05:00 White Blood Count 5.6 x10^3/uL (4.0-11.0) Red Blood Count 3.07 x10^6/uL (3.50-5.40) Hemoglobin 9.6 g/dL (12.0-15.5) Hematocrit 27.4 % (36.0-47.0) Mean Corpuscular Volume 89 fL (79-100) Mean Corpuscular Hemoglobin 31 pg (25-35) Mean Corpuscular Hemoglobin Concent 35 g/dL (31-37) Red Cell Distribution Width 12.9 % (11.5-14.5) Platelet Count 191 x10^3/uL (140-400) Neutrophils (%) (Auto) 71 % (31-73) Lymphocytes (%) (Auto) 18 % (24-48) Monocytes (%) (Auto) 8 % (0-9) Eosinophils (%) (Auto) 3 % (0-3) Basophils (%) (Auto) 0 % (0-3) Neutrophils # (Auto) 4.0 x10^3uL (1.8-7.7) Lymphocytes # (Auto) 1.0 x10^3/uL (1.0-4.8) Monocytes # (Auto) 0.4 x10^3/uL (0.0-1.1) Eosinophils # (Auto) 0.1 x10^3/uL (0.0-0.7) Basophils # (Auto) 0.0 x10^3/uL (0.0-0.2) Sodium Level 135 mmol/L (136-145) Potassium Level 4.8 mmol/L (3.5-5.1) Chloride Level 103 mmol/L (98-107) Carbon Dioxide Level 23 mmol/L (21-32) Anion Gap 9 (6-14) Blood Urea Nitrogen 47 mg/dL (7-20) Creatinine 0.8 mg/dL (0.6-1.0) Estimated GFR (Cockcroft-Gault) 67.5 Glucose Level 90 mg/dL (70-99) Calcium Level 8.2 mg/dL (8.5-10.1) Phosphorus Level 2.4 mg/dL (2.6-4.7) Magnesium Level 2.2 mg/dL (1.8-2.4) Albumin 1.9 g/dL (3.4-5.0) Review of Systems Review of Systems nonverbal today Assessment and Plan Assessmemt and Plan Problems Medical Problems: (1) Acute renal failure Status: Acute (2) Dementia Status: Acute (3) Hemodynamic instability Status: Acute (4) Metabolic encephalopathy Status: Acute (5) Severe protein-calorie malnutrition Status: Acute (6) Urinary tract infection Status: Acute AFTT UTI acute renal failure Dehydration Vasomotor nephropathy Acute metabolic encephalopathy Uremia Severe malnutrition, alb 2.2 on admit Hyponatremia Hypovolemic Weakness and debility after a fall, C-diff colitis, Plan DC with Hospice in am Cont current meds DC IVs Encourage po intake Home meds if she can take them Prog seems terminal Problems: Comment Review of Relevant I have reviewed the following items manjinder (where applicable) has been applied. Labs Laboratory Tests Test 12/04/16 03:30 12/05/16 05:00 Hemoglobin 10.0 g/dL (12.0-15.5) 9.6 g/dL (12.0-15.5) Sodium Level 136 mmol/L (136-145) 135 mmol/L (136-145) Potassium Level 4.7 mmol/L (3.5-5.1) 4.8 mmol/L (3.5-5.1) Chloride Level 103 mmol/L (98-107) 103 mmol/L (98-107) Carbon Dioxide Level 24 mmol/L (21-32) 23 mmol/L (21-32) Anion Gap 9 (6-14) 9 (6-14) Blood Urea Nitrogen 63 mg/dL (7-20) 47 mg/dL (7-20) Creatinine 1.3 mg/dL (0.6-1.0) 0.8 mg/dL (0.6-1.0) Estimated GFR (Cockcroft-Gault) 38.6 67.5 Glucose Level 134 mg/dL (70-99) 90 mg/dL (70-99) Calcium Level 7.7 mg/dL (8.5-10.1) 8.2 mg/dL (8.5-10.1) Phosphorus Level 2.9 mg/dL (2.6-4.7) 2.4 mg/dL (2.6-4.7) Magnesium Level 1.9 mg/dL (1.8-2.4) 2.2 mg/dL (1.8-2.4) Albumin 1.9 g/dL (3.4-5.0) 1.9 g/dL (3.4-5.0) White Blood Count 5.6 x10^3/uL (4.0-11.0) Red Blood Count 3.07 x10^6/uL (3.50-5.40) Hematocrit 27.4 % (36.0-47.0) Mean Corpuscular Volume 89 fL (79-100) Mean Corpuscular Hemoglobin 31 pg (25-35) Mean Corpuscular Hemoglobin Concent 35 g/dL (31-37) Red Cell Distribution Width 12.9 % (11.5-14.5) Platelet Count 191 x10^3/uL (140-400) Neutrophils (%) (Auto) 71 % (31-73) Lymphocytes (%) (Auto) 18 % (24-48) Monocytes (%) (Auto) 8 % (0-9) Eosinophils (%) (Auto) 3 % (0-3) Basophils (%) (Auto) 0 % (0-3) Neutrophils # (Auto) 4.0 x10^3uL (1.8-7.7) Lymphocytes # (Auto) 1.0 x10^3/uL (1.0-4.8) Monocytes # (Auto) 0.4 x10^3/uL (0.0-1.1) Eosinophils # (Auto) 0.1 x10^3/uL (0.0-0.7) Basophils # (Auto) 0.0 x10^3/uL (0.0-0.2) Laboratory Tests Test 12/05/16 05:00 White Blood Count 5.6 x10^3/uL (4.0-11.0) Red Blood Count 3.07 x10^6/uL (3.50-5.40) Hemoglobin 9.6 g/dL (12.0-15.5) Hematocrit 27.4 % (36.0-47.0) Mean Corpuscular Volume 89 fL (79-100) Mean Corpuscular Hemoglobin 31 pg (25-35) Mean Corpuscular Hemoglobin Concent 35 g/dL (31-37) Red Cell Distribution Width 12.9 % (11.5-14.5) Platelet Count 191 x10^3/uL (140-400) Neutrophils (%) (Auto) 71 % (31-73) Lymphocytes (%) (Auto) 18 % (24-48) Monocytes (%) (Auto) 8 % (0-9) Eosinophils (%) (Auto) 3 % (0-3) Basophils (%) (Auto) 0 % (0-3) Neutrophils # (Auto) 4.0 x10^3uL (1.8-7.7) Lymphocytes # (Auto) 1.0 x10^3/uL (1.0-4.8) Monocytes # (Auto) 0.4 x10^3/uL (0.0-1.1) Eosinophils # (Auto) 0.1 x10^3/uL (0.0-0.7) Basophils # (Auto) 0.0 x10^3/uL (0.0-0.2) Sodium Level 135 mmol/L (136-145) Potassium Level 4.8 mmol/L (3.5-5.1) Chloride Level 103 mmol/L (98-107) Carbon Dioxide Level 23 mmol/L (21-32) Anion Gap 9 (6-14) Blood Urea Nitrogen 47 mg/dL (7-20) Creatinine 0.8 mg/dL (0.6-1.0) Estimated GFR (Cockcroft-Gault) 67.5 Glucose Level 90 mg/dL (70-99) Calcium Level 8.2 mg/dL (8.5-10.1) Phosphorus Level 2.4 mg/dL (2.6-4.7) Magnesium Level 2.2 mg/dL (1.8-2.4) Albumin 1.9 g/dL (3.4-5.0) Microbiology 12/02/16 Urine Culture - Final, Complete 12/02/16 Urine Culture Result 1 (ROCCO) - Final, Complete 12/02/16 Antimicrobic Susceptibility - Final, Complete Medications Current Medications Sodium Chloride 1,000 ml @ 1,000 mls/hr Q1H IV Last administered on 12/02/16 03:57; Start 12/02/16 at 03:00; Stop 12/02/16 at 04:59; Status DC Ceftriaxone Sodium 1 gm/ Sodium Chloride 50 ml @ 100 mls/hr Q24H IV Last administered on 12/05/16 06:09; Start 12/03/16 at 04:00; Stop 12/05/16 at 16:03; Status DC Ceftriaxone Sodium 50 ml @ 100 mls/hr 1X ONCE IV Last administered on 03:30; Start 12/02/16 at 03:30; Stop 12/02/16 at 03:59; Status DC Ondansetron HCl (Zofran) 4 mg PRN Q8HRS PRN IV NAUSEA/VOMITING; Start 12/02/16 at 04:15; Stop 12/03/16 at 04:14; Status DC Sodium Chloride 1,000 ml @ 150 mls/hr Q6H40M IV Last administered on 23:05; Start 12/02/16 at 04:15; Stop 12/03/16 at 04:14; Status DC Acetaminophen (Tylenol) 650 mg PRN Q4HRS PRN PO FEVER Last administered on 12/02 21:59; Start 12/02/16 at 04:15; Stop 12/03/16 at 04:14; Status DC Atenolol (Tenormin) 25 mg DAILY PO Last administered on 12/04/16 16:37; Start 12/02/16 at 09:00 Enoxaparin Sodium (Lovenox Per Pharmacy Prophylaxis Dosing) 1 each PRN DAILY PRN MC SEE COMMENTS; Start 12/02/16 at 08:45; Stop 12/02/16 at 15:54; Status DC Enoxaparin Sodium (Lovenox 30mg Syringe) 30 mg Q24H SQ Last administered on 09:56; Start 12/02/16 at 09:00; Stop 12/02/16 at 16:02; Status DC Sodium Bicarbonate (Sodium Bicarbonate) 650 mg BID PO Last administered on 20:48; Start 12/02/16 at 09:30 Heparin Sodium (Porcine) (Heparin Sq) 5,000 unit Q12HR SQ Last administered on 12/04/16 21:01; Start 12/03/16 at 09:00 Metronidazole (Flagyl) 500 mg Q8HRS PO Last administered on 12/03/16 04:51; Start 12/02/16 at 22:00; Stop 12/03/16 at 09:54; Status DC Sodium Chloride 1,000 ml @ 150 mls/hr Q6H40M IV Last administered on 08:09; Start 12/03/16 at 08:00; Stop 12/04/16 at 16:51; Status DC Vancomycin HCl 125 mg [id number] PO Last administered on 12/04/16 20:48; Start at 13:00 Lactobacillus Acidophilus (Bacid, Anne Marie-Bid) 1 tab TIDWMEALS PO Last administered on 12/04/16 16:37; Start 12/03/16 at 12:00 Linezolid (Zyvox) 600 mg BID PO Last administered on 12/04/16 20:48; Start at 10:00; Stop 12/05/16 at 16:03; Status DC Magnesium Sulfate/ Dextrose 50 ml @ 25 mls/hr PRN DAILY PRN IV for Mag < 1.7 on am labs; Start 12/03/16 at 11:30 Amino Acids/ Glycerin/ Electrolytes 1,000 ml @ 80 mls/hr [id number] IV Last administered on 12/05/16 01:00; Start 12/03/16 at 11:30 Iron Sucrose 200 mg/Sodium Chloride 110 ml @ 55 mls/hr 3X/WEEK IV ; Start at 09:00; Stop 12/15/16 at 10:59 Acetaminophen (Tylenol) 650 mg PRN Q6HRS PRN PO MILD PAIN / TEMP Last administered on 12/04/16t 11:51; Start 12/04/16 at 11:15 Sodium Phosphate 20 mmol/Dextrose 256.6667 ml @ 64.167 m... 1X ONCE IV ; Start 12/05/16 at 12:30; Stop 12/05/16 at 16:29; Status DC Active Scripts Active Reported Neurontin (Gabapentin) 100 Mg Capsule 100 Mg PO TID Bacid Caplet (Acidoph/L.bulg/Bif.b/S.thermop) 1 Each Tablet 1 Each PO BID Cipro (Ciprofloxacin Hcl) 250 Mg Tablet 1 Tab PO BID Acetaminophen 500 Mg Tablet 2 Tab PO Q4HRS PRN Tramadol Hcl 50 Mg Tablet 25 Mg PO PRN Q6HRS Loperamide (Loperamide Hcl) 2 Mg Tablet 2 Mg PO PRN 2 caps initially then 1 cap each loose stool up to 8 caps in 24 hrs Capzasin Quick Relief Gel (Capsaicin/Menthol) 42.5 Gm Gel.w.appl 1 Pam TP TID PRN Torsemide 20 Mg Tablet 10 Mg PO Q3DAYS Mirapex (Pramipexole Di-Hcl) 0.25 Mg Tablet 1 Tab PO DAILY Metamucil Packet (Psyllium Seed (With Sugar)) 1 Each Packet 1 Each PO DAILY Hydrochlorothiazide Tablet (Hydrochlorothiazide) 12.5 Mg Tablet 12.5 Mg PO DAILY Atenolol 25 Mg Tablet 25 Mg PO DAILY Vitals/I & O Vital Sign - Last 24 Hours 12/04/16 12/04/16 12/04/16 12/05/16 19:00 20:00 23:00 03:00 Temp 97.7 97.9 98.1 97.7 97.9 98.1 Pulse 74 73 99 Resp 18 18 18 B/P (MAP) 131/71 (91) 133/79 (97) 124/70 (88) Pulse Ox 97 98 97 O2 Delivery Room Air Room Air Room Air Room Air O2 Flow Rate 2.0 12/05/16 12/05/16 12/05/16 07:00 08:00 11:00 Temp 98.7 98.1 98.7 98.1 Pulse 70 68 Resp 17 18 B/P (MAP) 113/43 (66) 130/76 (94) Pulse Ox 94 97 O2 Delivery Room Air Room Air Room Air Intake and Output 12/04/16 12/04/16 12/05/16 15:00 23:00 07:00 Intake Total 120 ml 0 ml Output Total 800 ml 375 ml 1350 ml Balance -680 ml -375 ml -1350 ml Nutrition Consultation Dietary Evaluation: Recommendations by RD: Add supplement feedings Comments: boost plus boost puddding ppn @ 80 ml/hr REC mvi, vit c Expected Outcomes/Goals: to meet > 50% est nutr needs via po - not met, goal ongoing Interpretation of weight loss: >5% in 1 month Malnutrition Findings: Food and Nutrition Intake (Sev: <50% est energy req 5days Weight Status: Appropriate SANDY CROCKETT III DO Dec 05, 2016 17:09
[2016-12-05] MEDS ORDERED: LORazepam INTENSOL 2 MG/ML ORAL.CONC SL PRN (17:30)
[2016-12-05] MEDS: MORPHINE SULFATE 20 MG/ML CONC SOLUTION. SL PRN ×2 (17:37→22:00)
[2016-12-05 19:00] VITALS: BP 102/45
[2016-12-06] MEDS: MORPHINE SULFATE 20 MG/ML CONC SOLUTION. SL PRN ×2 (05:16→11:11)
[2016-12-06 07:00] VITALS: BP 109/45
[2016-12-06] MEDS: ATENOLOL 25 MG TABLET. PO SCH (07:49)
[2016-12-06] MEDS: HEPARIN PF for SUB-Q USE 5,000 UNIT/0.5 ML VIAL. SQ SCH (07:49)
[2016-12-06] MEDS: VANCOMYCIN 125 MG/2.5 ML ORAL SOLUTION. PO SCH ×2 (07:49→07:50)
[2016-12-06] MEDS: SODIUM BICARBONATE 650 MG TABLET. PO SCH (07:49)
[2016-12-06] MEDS: LACTOBACILLUS ACIDOPH & BULGAR 1 TABLET. PO SCH ×2 (07:49→07:50)
--- NOTE | 2016-12-10 12:13 | DS ---
DATE OF DISCHARGE: 12/06/2016 ADMISSION DIAGNOSES: Failure to thrive and urinary tract infection. DISCHARGE DIAGNOSES: Failure to thrive, resolving urinary tract infection with history of renal failure, dehydration, vasomotor neuropathy, resolving metabolic encephalopathy, uremia, severe malnutrition, hyponatremia, weakness, and history of Clostridium difficile. CONSULTS: Palliative care. HOSPITAL COURSE: The patient is a pleasant elderly female who basically has multiple comorbidities, she presented with a UTI and metabolic encephalopathy. We gave her fluids and antibiotics. She really was not doing well. We consulted palliative care. The family decided on hospice. DISPOSITION: Home with hospice. ACTIVITY: As tolerated. DIET: Low sodium. MEDICATIONS: Please see the MRAD. TOTAL TIME ON DISCHARGE: 31 minutes. SANDY CROCKETT DO DR: Diallo JOB#: [id number] / [id number]
== END 2016-12-06 12:00 | disposition hospice, inpatient (51) | DRG 371 ==
LOC: ER 02:03 → 5 NORTH 04:16
PROVIDERS: ADMIT Internal Medicine; ATTEND Internal Medicine
DX: A04.7 Enterocolitis due to Clostridium difficile (principal); E43 Unspecified severe protein-calorie malnutrition; G93.41 Metabolic encephalopathy; N17.0 Acute kidney failure with tubular necrosis; N39.0 Urinary tract infection, site not specified; E87.1 Hypo-osmolality and hyponatremia; E66.9 Obesity, unspecified; G30.9 Alzheimer's disease, unspecified; I10 Essential (primary) hypertension; K57.90 Diverticulosis of intestine, part unspecified, without perforation or abscess without bleeding; Z66 Do not resuscitate; R32 Unspecified urinary incontinence; I95.9 Hypotension, unspecified; F02.80 Dementia in other diseases classified elsewhere, unspecified severity, without behavioral disturbance, psychotic disturbance, mood disturbance, and anxiety; E86.1 Hypovolemia; Z16.21 Resistance to vancomycin; Z51.5 Encounter for palliative care; Z85.42 Personal history of malignant neoplasm of other parts of uterus; Z91.81 History of falling; Z98.49 Cataract extraction status, unspecified eye; Z88.5 Allergy status to narcotic agent; Z79.899 Other long term (current) drug therapy; Z79.2 Long term (current) use of antibiotics; Z90.710 Acquired absence of both cervix and uterus; Z68.22 Body mass index [BMI] 22.0-22.9, adult; Z80.9 Family history of malignant neoplasm, unspecified; Z82.49 Family history of ischemic heart disease and other diseases of the circulatory system; Z82.61 Family history of arthritis
CPT/HCPCS: 36415; 74000; 74022; 80048; 80053; 80069; 81001; 82728; 83540; 83550; 83735; 85018; 85027; 85045; 87086; 87186; 87324; 87641; 93005; 96361; 96365; A4314; J0690; J0696; J1650; J1756; J7030; 92610; 97110; 97530; 97535; 99291-25